=== PATIENT | female | born 1945 | race Caucasian/White ===

== ENCOUNTER 2024-08-21 16:03 | Observation (INO) | payer OTHER, SELFPAY ==
[2024-08-21] VITALS (7 sets, daily range): BP systolic 129–154; BP diastolic 54–80; BMI 25.5
--- NOTE | 2024-08-21 11:22 | ED.GENMED ---
History of Present Illness
General
Chief Complaint: Gait Dysfunction
Source: patient
Exam Limitations: none
Time Seen by Provider: 08/21/24 11:10
History of Present Illness
History of Present Illness:
Patient presenting with increased difficulties transitioning moving from bed or chair to wheelchair. History of MS. Progressive symptoms over months. Fell last night. History of frequent falls. Unable to handle at home at this point. No other
symptoms denying fever cough abdominal pain. Did have nausea and vomiting last evening. This has resolved.
Past History
Past History
ED Past Medical History: Hypercholesterolemia, NIDDM and Other (Multiple sclerosis, mild dementia, osteoporosis)
Social History
Tobacco: Non-smoker
Review of Systems
Review of Systems
All Other Systems: Not applicable
Constitutional: Denies fever or chills
Respiratory: Reports no symptoms
Cardiac: Reports no symptoms
ABD/GI: Denies abdominal pain or diarrhea
Phy Exam
Physical Exam
Physical Exam:
GENERAL: Alert and oriented in no apparent distress
EYE: Patch over her right eye
NECK: Supple, no significant adenopathy.
ENT: Pharynx without erythema
CARDIAC: Regular rate and rhythm without any obvious murmurs.
LUNGS: Clear breath sounds,normal
ABDOMEN: Soft, without focal tenderness or distention
NEUROLOGICAL: Alert and oriented , significant lower extremity weakness greater on the right. Upper extremity weakness greater on the right. This apparently is old.
SKIN: Warm and dry, no rash or lesion, no discoloration, skin intact.
MUSCULOSKELETAL: No edema,no deformity.Good color
PSYCH: Normal and appropriate interaction.
Sepsis
Sepsis Screening
Sepsis Assessment: Sepsis Ruled Out
Sepsis Screen
Sepsis Screen: Sepsis Ruled Out
Date: 08/22/24
Time: 08:53
Course
Orders/Labs/Results
Orders:
Orders
08/21/24 11:21
CT Head W/o Iv Contrast Urgent
Comment:
Reason For Exam: Increased weakness. History of MS
Cardiac Monitoring- Treatment ONCE
EKG- Treatment ONCE
IV Insert/Care/Rem.- Treatment PRN
Pulse Ox/cont/shift [RESP] Stat
Quantity: 1
08/21/24 11:34
Basic Metabolic Panel Urgent
COVID-19 Antigen Urgent
Source: Nasal Swab
Complete Blood Count/With Diff Urgent
Manual Differential Urgent
Urinalysis Reflex To Culture Urgent
Date Specimen was Collected: 08/21/24
Time Specimen was Collected: 11:25
Urine Microscopic Reflex Cult Urgent
Influenza A+B Rapid Molecular Urgent
MARIBETH Source: Nasal Swab
Specimen Description:
08/21/24 Dinner
BRAT
At Your Request: Limited Participation
08/21/24 15:27
Admit/Transfer Patient As Directed
Co-Sign Provider:
Level of Care: Observation services
Assign to:: Medical/Surgical
Physician / Group: shamika
Diagnosis: gastroenteritis
08/21/24 15:28
Code Status As Directed
Resuscitation Status: Do not resuscitate
Reached after discussion with pt or family/Healthcare POA: Yes
DNR Bracelet Application ONCE
PRN Pain Medication Management As Directed
May give lesser potent ordered pain med per pt: Yes
preference::
Protocol:: Medication orders for pain may be administered in a
manner that supports deferring to patient preference
when the pt is:
- Requesting an ordered lesser potent pain medication.
Least to most potent pain medications are defined
as: acetaminophen < NSAID < tramadol < opioids
(morphine, oxycodone, hydromorphone).
- Requesting a lesser dose of the same medication IF
ORDERED.
- Requesting a less intrusive route of administration
if both routes are prescribed by the provider (PO <
IV).
08/21/24 19:30
Dextrose 50%-Water [Dextrose 50% Syringe] 12.5 grams IV [id number] PRN
Glucagon [GlucaGen] 1 mg IM PRN PRN
Insulin Aspart Corrective Low [Novolog Flexpen-Low Resistance] See Protocol SC AC
Ondansetron Injectable [Zofran] 4 mg IV Q6HPRN PRN
Polyethylene Glycol Powder [Miralax] 17 grams PO DAILYPRN PRN
08/21/24 19:30
Activity As Directed
Activity Level: As Tolerated
Bedside Glucose Monitoring As Directed
Frequency: AC&HS
Additional Instructions:: Change to q6h if pt on TPN, tube feeding or not eating
Vital Signs As Directed
Frequency: Per unit guidelines
Ot Eval And Treat Routine
Pt Eval And Treat Routine
Activity Level: As Tolerated
DX Deep Vein Thrombosis Video Routine
08/21/24 20:00
Heparin 5,000 units SC Q12
08/22/24 04:32
Complete Blood Count/With Diff IN AM
Comprehensive Metabolic Panel IN AM
Glycohemoglobin (HgbA1c) IN AM
08/22/24 08:00
Insulin Glargine Lantus [Lantus] 22 units Subcutaneous Insulin Syringe [Syringe-Insulin] 0 unit SC DAILY
Abnormal Lab Results
08/21/24
11:34
MCH 31.6 H pg
(27.0-31.0)
MPV 10.9 H fL
(7.4-10.4)
Band Neutrophils 30 H %
(0-3)
Lymphocytes (Manual) 0 L %
(20-51)
Chloride 108 H mmol/L
(98-107)
BUN 36 H mg/dl
(7-17)
Glucose 369 H mg/dl
(70-99)
Calcium 8.3 L mg/dl
(8.4-10.2)
Urine Ketones 3+ A
(Negative)
Urine Bacteria (Reflex) Few A
(Negative)
Urine Glucose 4+ A
(Negative)
Urine Albumin (Reflex) 1+ A
(Neg - Trace)
08/21/24 11:34
08/21/24 11:34
Vital Signs
Initial and Last Documented VS:
Initial Vital Signs
BP
150/66
08/21/24 11:04
Last Documented Vital Signs
Temp Pulse Resp BP Pulse Ox
98.2 F 83 16 129/70 94
08/22/24 07:00 08/22/24 07:00 08/22/24 07:00 08/22/24 07:00 08/22/24 07:00
MDM/Problems Addressed
Differential Diagnosis Includes:
Patient describing progressive weakness likely secondary to her MS. Other etiologies to be entertained including electrolyte abnormality infection central neurologic issue. She is asymmetrical on her weakness but this apparently is known. Workup
in progress. This will likely be an ADL issue.
*Radiology
Radiology exam reviewed: radiology read reviewed (No acute findings on CT)
*Pulse Oximetry
Patient hypoxic: no
*Critical Care Note
Total Time (30-74mins, 75-104mins- exclusive of procedures): Not Applicable
Data Reviewed
Review of Other/Old Records Reveals: Labs, Records, Testing and Discharge Summary
Update Note
Update Note:
Patient with progressive general weakness. May be related to her MS. May be other underlying infectious issue with the bandemia although clinically I cannot find another infectious issue. Significant and progressive ADL issues. Unable to handle
at home. Will admit for further workup and care
ED Attending Note
-
Portions of this chart may have been created with voice recognition software.� Occasional wrong word or��sound alike� substitutions may have occurred due to the inherent limitations of voice recognition software.
Discharge Plan
Departure
Patient Disposition: Admit
Date of Disposition: 08/21/24
Time of Disposition: 15:05
Presentation/result/management discussed w/ accepting MD/DO: Hospitalist
Discharge Problem:
Ambulatory dysfunction, Multiple sclerosis, Bandemia
Interventions
Interventions:
*Risk Screen - Suicide Last Done: 08/21/24 12:00
*General Assessment Last Done: 08/21/24 12:00
*Neglect/Abuse Screening Last Done: 08/21/24 12:00
ED- Fall Risk Assessment Last Done: 08/21/24 12:00
*ED COVID-19 Vaccine History Last Done: 08/21/24 19:44
*Nursing Disposition Last Done: 08/21/24 19:44
ED- Neurological Assessment Last Done: 08/21/24 12:00
ED Swallowing Screen Last Done: 08/21/24 12:00
Discharge Date and Time
Discharge Date/Time: 08/21/24 19:45
[2024-08-21 11:55] LABS: Hematocrit 45.5 % (37.0-47.0); Hemoglobin 15.4 g/dL (12.0-16.0); Mean Corp Hgb Conc. 33.8 g/dL (33.0-37.0); Mean Corpuscular Hgb 31.6 pg (27.0-31.0); Mean Corpuscular Volume 93.2 fL (81.0-99.0); Mean Platelet Volume 10.9 fL (7.4-10.4); Platelet Count 240 10^3/uL (130-400); Red Blood Cell Count 4.88 10^6/uL (4.20-5.40); Red Cell Dist. Width 12.4 % (11.5-14.5)
[2024-08-21 12:00] LABS: Blood Urea Nitrogen 36 mg/dl (7-17); Calcium 8.3 mg/dl (8.4-10.2); Carbon Dioxide 23 mmol/L (22-30); Chloride 108 mmol/L (98-107); Estimated Creatinine Clearance 63 ml/min; Glucose 369 mg/dl (70-99); Potassium 4.1 mmol/L (3.5-5.1); Sodium 139 mmol/L (135-145); eGFR > 60.00
[2024-08-21 12:14] LABS: Urine Albumin 1+ (Neg - Trace); Urine Bilirubin Negative (Negative); Urine Character Clear (Clear); Urine Color Yellow; Urine Glucose 4+ (Negative); Urine Ketone 3+ (Negative); Urine Leukocyte Negative (Negative); Urine Nitrite Negative (Negative); Urine Occult Blood Negative (Negative); Urine Urobilinogen Negative (Neg - 1+)
[2024-08-21 12:24] LABS: COVID-19 Antigen Negative (Negative)
[2024-08-21 12:38] LABS: Absolute Neutrophils -Man Diff 5.8 10^3/uL (1.4-6.5); Band Neutrophils 30 % (0-3); Lymphocytes 0 % (20-51); Metamyelocytes 1 % (-); Monocytes 2 % (2-9); Segmented Neutrophils 67 % (42-75)
[2024-08-21 12:39] LABS: Normal RBC Morphology Yes; Platelets Checked Yes; Total Cells Counted 100
[2024-08-21 13:08] LABS: Urine Bacteria Few (Negative); Urine Red Blood Cell 0-2 /HPF (0-2)
--- NOTE | 2024-08-21 15:31 | HPS.HSE ---
Family Physician
-
Family Physician: Dina Dobbins
Chief Complaint
-
weakness, falls
History of Present Illness
79-year-old female past medical history of multiple sclerosis, frequent falls, osteoporosis, type 2 diabetes, orthostatic hypotension, hyperlipidemia, seizures, presenting with falls over the past few days. She has had progressive weakness over the
past several months due to worsening multiple sclerosis.
Yesterday she developed vomiting and diarrhea. Nausea and vomiting had resolved. Her had a gastroenteritis the preceding days and has recovered. She had a diarrheal episode this morning. She denies any fevers or chills. Denies abdominal
pain. No upper respiratory symptoms.
She has been wearing an eye patch over her right eye due to double vision due to multiple sclerosis.
She does not smoke or drink alcohol.
Medical History
Past Medical History
Past Medical History: Reports Other (multiple sclerosis, frequent falls, osteoporosis, type 2 diabetes, orthostatic hypotension, hyperlipidemia, seizures)
Past Surgical History: Reports None
Social History
Tobacco: Non-smoker
Alcohol: None
Drug: None
Family History
Family History: Not pertinent
Allergies / Home Medications
Allergies reflects when Allergies were last updated in [employer].
Home Medications with original date entered in [employer]
Allergy/Medication List:
Allergies
Allergy/AdvReac Type Severity Reaction Status Date / Time
No Known Allergies Allergy Unverified 08/21/24 11:18
Home Medications
aspirin 81 mg chewable tablet 81 mg PO DAILY 03/04/21
cholecalciferol (vitamin D3) 50 mcg (2,000 unit) tablet 2,000 units PO DAILY 03/04/21
glimepiride 4 mg tablet 4 mg PO DAILY 03/04/21
hdzfaowm-vay-wzrcl acid 0.4 mg-lycopene 300 mcg-lutein 250 mcg tablet (Centrum Silver) 1 ea PO DAILY 03/04/21
oxybutynin chloride 5 mg tablet 5 mg PO DAILY 03/04/21
pravastatin 40 mg tablet 40 mg PO HS 03/04/21
siponimod 2 mg tablet (Mayzent) 2 mg PO DAILY 03/04/21
alendronate 70 mg tablet 70 mg PO MO 08/13/22
calcium 600 mg (as carbonate)-vit D3 20 mcg (800 unit) chewable tablet (Caltrate plus D) 1 tab PO DAILY 08/13/22
levetiracetam 1,000 mg tablet 1,000 mg PO BID 08/13/22
melatonin 10 mg tablet 10 mg PO HS PRN sleep 08/13/22
metformin 1,000 mg tablet 1,000 mg PO BID 08/13/22
midodrine 2.5 mg tablet 2.5 mg PO TID 08/13/22
repaglinide 0.5 mg tablet 0.5 mg PO AC 08/13/22
trazodone 50 mg tablet 12.5 mg PO HS 08/13/22
benzonatate 100 mg capsule 200 mg (2 x 100 mg) PO TIDPRN PRN cough #0 caps 08/14/22
doxycycline hyclate 100 mg capsule 100 mg PO Q12 #10 caps 08/14/22
guaifenesin 600 mg tablet, extended release 12 hr (Mucinex) 600 mg PO Q12H #14 tabs 08/14/22
Review of Systems
-
Constitutional: Reports No Symptoms
EENT: Reports No Symptoms
Respiratory: Reports No Symptoms
Cardiac: Reports No Symptoms
Abdomen/GI: Reports See HPI
: Reports No Symptoms
Musculoskeletal: Reports No Symptoms
Skin: Reports No Symptoms
Neurological: Reports No Symptoms
Endocrine: Reports No Symptoms
Hematologic/Lymphatic: Reports No Symptoms
Psych: Reports No Symptoms
Physical Exam
Vital Signs
Vital Signs
Temp Pulse Resp BP Pulse Ox
98.2 F 99 26 150/66 93
08/21/24 11:07 08/21/24 11:30 08/21/24 11:30 08/21/24 11:07 08/21/24 11:30
Physical Exam
General: Well Developed, Well Nourished and No Apparent Distress
HEENT: NormoCephalic, Moist mucous membranes and Atraumatic
Respiratory: Clear
Cardiac: S1/S2 and Regular Rhythm; No Murmur or Rub
GI: Soft, Non Tender, Non Distended and Normal Bowel Sounds; No Organomegaly
Rectal: Deferred by Provider
Musculoskeletal: No Clubbing, No Cyanosis and No Edema
Skin: No Rash
Neuro: Nonfocal/grossly intact
Laboratory Results
-
08/21/24 11:34
08/21/24 11:34
Data Reviewed
-
Lab Data: Labs Reviewed by me
Old Records: Reviewed
Impression/Plan
-
IMPRESSION:
PLAN:
# Weakness/ambulatory dysfunction/falls secondary to viral gastroenteritis
# Bandemia
-CT head pending
-Check stool studies, norovirus if further diarrhea
-Urinalysis negative
-Brat diet
-PT/OT
# Hyperglycemia secondary to infection
# Type 2 diabetes
-Blood sugar 369
-Continue Lantus 22 units in the morning which she took this morning
-Insulin sliding scale
Progressive multiple sclerosis with double vision
-Wearing right eye patch
-Has been progressing
-On infusions
-Outpatient follow-up with her neurologist
History of frequent falls
History of orthostatic hypotension
-Continue midodrine
Osteoporosis
-Continue alendronate
Hyperlipidemia
-Continue statin
History of seizures
-Continue Keppra
DNR/DNI
DVT prophylaxis�heparin
Diabetic diet
[2024-08-21 20:13] LABS: Glucose - Point of Care 298 mg/dl (70-99)
[2024-08-21] MEDS: HEPARIN 5000 UNITS SC (20:13)
[2024-08-21] MEDS: NOVOLOG FLEXPEN-LOW RESISTANCE 3 UNITS SC (21:02)
[2024-08-21] MEDS: ProAmatine 2.5 MG PO (21:58)
[2024-08-21] MEDS: DESYREL 12.5 MG PO (21:58)
[2024-08-21] MEDS: VISBIOME 1 CAP PO (22:05)
[2024-08-21] MEDS: KEPPRA 1000 MG PO (22:30)
[2024-08-22 05:40] LABS: Hemoglobin 14.4 g/dL (12.0-16.0); Mean Corp Hgb Conc. 34.3 g/dL (33.0-37.0); Mean Corpuscular Hgb 31.7 pg (27.0-31.0); Mean Corpuscular Volume 92.5 fL (81.0-99.0); Platelet Count 237 10^3/uL (130-400); Red Blood Cell Count 4.54 10^6/uL (4.20-5.40); Red Cell Dist. Width 12.6 % (11.5-14.5); White Blood Cell Count 5.4 10^3/uL (4.8-10.8)
[2024-08-22 05:45] LABS: ALT (SGPT) 38 U/L (0-35); AST (SGOT) 32 U/L (14-36); Albumin 3.5 g/dl (3.5-5.0); Alkaline Phosphatase 50 U/L (38-126); Blood Urea Nitrogen 35 mg/dl (7-17); Calcium 8.3 mg/dl (8.4-10.2); Carbon Dioxide 27 mmol/L (22-30); Chloride 105 mmol/L (98-107); Estimated Creatinine Clearance 55 ml/min; Glucose 177 mg/dl (70-99); Potassium 4.1 mmol/L (3.5-5.1); Sodium 141 mmol/L (135-145); Total Bilirubin 0.6 mg/dl (0.2-1.3); Total Protein 5.8 g/dl (6.3-8.2); eGFR > 60.00
[2024-08-22 06:00] VITALS: BMI 26.0
[2024-08-22 06:51] LABS: Absolute Neutrophils -Man Diff 4.9 10^3/uL (1.4-6.5); Atypical Lymphocytes 1 %; Band Neutrophils 28 % (0-3); Lymphocytes 2 % (20-51); Monocytes 5 % (2-9); Segmented Neutrophils 64 % (42-75)
[2024-08-22 06:52] LABS: Normal RBC Morphology Yes; Platelets Checked Yes; Total Cells Counted 100
[2024-08-22 07:00] VITALS: BP 129/70
[2024-08-22 08:53] LABS: Glucose - Point of Care 258 mg/dl (70-99)
[2024-08-22 09:09] LABS: Glycohemoglobin (HgbA1c) 8.3 % (4.0-5.6)
[2024-08-22 09:13] VITALS: BP 136/75; PULSE 89; O2SAT 98
[2024-08-22 09:14] VITALS: BP 136/75; PULSE 87; O2SAT 98
[2024-08-22] MEDS: NOVOLOG FLEXPEN-LOW RESISTANCE 3 UNITS SC (09:26)
[2024-08-22] MEDS: LANTUS 0.22 UNITS SC (09:28)
[2024-08-22] MEDS: HEPARIN 5000 UNITS SC ×2 (09:29→20:33)
[2024-08-22] MEDS: DITROPAN 5 MG PO (09:30)
[2024-08-22] MEDS: OSCAL 500 + D 500 MG PO (09:30)
[2024-08-22] MEDS: ProAmatine 2.5 MG PO ×3 (09:30→16:10)
[2024-08-22] MEDS: KEPPRA 1000 MG PO ×2 (09:30→20:33)
[2024-08-22] MEDS: VISBIOME 1 CAP PO ×3 (09:30→22:15)
[2024-08-22] MEDS: LOW STRENGTH ASPIRIN 81 MG PO (09:30)
--- NOTE | 2024-08-22 10:20 | W.PN.HOSP.TC ---
Today's Communication/Plan
-
see plan
Assessment / Plan
Assessment / Plan
Ms. Jumana Bocanegra is a 79 yo woman with hx of multiple sclerosis (with progressive weakness over past several months), frequent falls, osteoporosis, type 2 diabetes, orthostatic hypotension, hyperlipidemia, seizures, presenting with falls over
the past few days in setting of vomiting and diarrhea.
HEAD CT
IMPRESSION:
1. Severe demyelinating disease (MULTIPLE SCLEROSIS) throughout the periventricular and subcortical white matter of both cerebral hemispheres.
2. Moderate diffuse cerebral and cerebellar volume loss.
Weakness/ambulatory dysfunction/falls secondary to viral gastroenteritis
Bandemia - persists today (30 --> 28) but patient is clinically improved
-change to Diabetic diet
-PT/OT
- monitor CBC with Diff
# Hyperglycemia secondary to infection
# Type 2 diabetes
-Continue Lantus 22 units in the morning which she took this morning
-Insulin sliding scale
-diabetic diet
-resume Metformin
Progressive multiple sclerosis with double vision
-Wearing right eye patch
-Has been progressing. Per , she was able to transfer from wheelchair to bed but over past several days has been unable to do so (in setting of GI illness).
-On infusions
-LICENSED [employer] [facility] - will bring in today
-Outpatient follow-up with her neurologist - per , she has an appointment for Friday
-PT/OT
History of frequent falls
History of orthostatic hypotension
-Continue midodrine
Osteoporosis
-Continue alendronate
Hyperlipidemia
-Continue statin
History of seizures
-Continue Keppra
DNR/DNI
DVT prophylaxis�heparin
Diabetic diet
Anticipated Discharge: 24 - 48 hours
Subjective/Interval History
-
Date of Service: August 22, 2024
GI symptoms now resolved, no further diarrhea or vomiting
progressive right sided weakness
Objective Data
-
Labs:
Laboratory Results
08/22/24
04:32
WBC 5.4
Hgb 14.4
Hct 42.0
Plt Count 237
Sodium 141
Potassium 4.1
Chloride 105
Carbon Dioxide 27
BUN 35 H
Creatinine 0.8
Glucose 177 H
Calcium 8.3 L
Total Bilirubin 0.6
AST 32
ALT 38 H
Alkaline Phosphatase 50
Vital Signs:
Vital Signs
Temp Pulse Resp BP Pulse Ox
98.2 F 83 16 129/70 94
08/22/24 07:00 08/22/24 09:30 08/22/24 07:00 08/22/24 09:30 08/22/24 07:00
Review of Systems
-
History Source: Patient
All other systems: Reviewed and negative
Physical Exam
-
General: No Apparent Distress
HEENT: PERRLA
Respiratory: Clear to Auscultation; Negative Wheezes
Cardiac: Regular Rhythm and S1/S2
GI: Soft and Nontender
Musculoskeletal: No Edema
Neuro: AO x 3 and Other (right-sided weakness)
Psych: Calm
Data Reviewed
-
Diagnostic Radiology: Report Reviewed by me
Labs: Labs Reviewed by me
--- NOTE | 2024-08-22 12:12 | CM ---
CM following re: discharge planning.
Reviewed pt's chart, met with pt.
Pt is a 79 year old female admitted with OBS status and primary dx of Weakness/ambulatory dysfunction/falls secondary to viral gastroenteritis. OBS form reviewed, placed on chart, pt has a copy.
Pt reports she lives with in an independent apartment at [facility], has no children. Pt reports she ambulates with a walker, has a wheelchair, shower chair, known to [facility] and was at [facility] in the past. pt made a
strong request to go o [facility] for a short term rehab.
A referral to [facility] made. Awaiting for determination.
D/C plan: [facility]
CM will follow to assist pt with discharge to [facility].
[2024-08-22 12:34] LABS: Glucose - Point of Care 204 mg/dl (70-99)
[2024-08-22] MEDS: NOVOLOG FLEXPEN-LOW RESISTANCE 2 UNITS SC (13:05)
[2024-08-22 15:00] VITALS: BP 116/58
[2024-08-22] MEDS: NON-FORMULARY ITEM 2 MG PO (16:00)
[2024-08-22] MEDS: GLUCOPHAGE 1000 MG PO (16:14)
[2024-08-22 17:21] LABS: Glucose - Point of Care 198 mg/dl (70-99)
[2024-08-22] MEDS: PRAVACHOL 20 MG PO (18:06)
[2024-08-22] MEDS: NOVOLOG FLEXPEN-LOW RESISTANCE 1 UNITS SC (18:07)
[2024-08-22 21:34] LABS: Glucose - Point of Care 187 mg/dl (70-99)
[2024-08-22] MEDS: DESYREL 12.5 MG PO (22:14)
[2024-08-22 23:57] VITALS: BP 124/63
[2024-08-23 06:00] VITALS: BMI 25.7
[2024-08-23 06:43] LABS: % Basophils 0.2 % (0-2); % Eosinophils 4.1 % (0-6); % Immature Granulocytes 0.2 % (0-0.5); % Lymphocytes 3.8 % (20.5-51.1); % Monocytes 15.2 % (1.7-9.3); % Neutrophils 76.5 % (42.2-75.2); Absolute Eosinophils 0.2 10^3/uL (0-0.7); Absolute Lymphocytes 0.2 10^3/uL (1.2-3.4); Absolute Monocytes 0.8 10^3/uL (0.1-0.6); Absolute Neutrophils 4.1 10^3/uL (1.4-6.5); Hematocrit 41.1 % (37.0-47.0); Hemoglobin 14.1 g/dL (12.0-16.0); Mean Corp Hgb Conc. 34.3 g/dL (33.0-37.0); Mean Corpuscular Hgb 31.7 pg (27.0-31.0); Mean Corpuscular Volume 92.4 fL (81.0-99.0); Nucleated Red Blood Cells % 0 %; Platelet Count 211 10^3/uL (130-400); Red Blood Cell Count 4.45 10^6/uL (4.20-5.40); Red Cell Dist. Width 12.3 % (11.5-14.5); White Blood Cell Count 5.3 10^3/uL (4.8-10.8)
[2024-08-23 07:05] LABS: Blood Urea Nitrogen 27 mg/dl (7-17); Calcium 8.6 mg/dl (8.4-10.2); Carbon Dioxide 29 mmol/L (22-30); Chloride 103 mmol/L (98-107); Estimated Creatinine Clearance 63 ml/min; Glucose 147 mg/dl (70-99); Sodium 138 mmol/L (135-145); eGFR > 60.00
[2024-08-23 07:34] LABS: Glucose - Point of Care 157 mg/dl (70-99)
[2024-08-23 07:57] LABS: Magnesium 2.1 mg/dl (1.6-2.3)
[2024-08-23 08:23] VITALS: BP 113/78
[2024-08-23] MEDS: HEPARIN 5000 UNITS SC ×2 (09:01→20:36)
[2024-08-23] MEDS: LANTUS 0.22 UNITS SC (09:01)
[2024-08-23] MEDS: OSCAL 500 + D 500 MG PO (09:02)
[2024-08-23] MEDS: DITROPAN 5 MG PO (09:02)
[2024-08-23] MEDS: LOW STRENGTH ASPIRIN 81 MG PO (09:02)
[2024-08-23] MEDS: ProAmatine 2.5 MG PO ×3 (09:04→16:08)
[2024-08-23] MEDS: GLUCOPHAGE 1000 MG PO ×2 (09:04→17:50)
[2024-08-23] MEDS: NON-FORMULARY ITEM 2 MG PO (09:05)
[2024-08-23] MEDS: KEPPRA 1000 MG PO ×2 (09:05→20:37)
[2024-08-23] MEDS: VISBIOME 1 CAP PO ×3 (09:05→23:10)
[2024-08-23] MEDS: NOVOLOG FLEXPEN-LOW RESISTANCE 1 UNITS SC ×2 (09:06→12:59)
[2024-08-23] MEDS: FOSAMAX 70 MG PO (09:55)
[2024-08-23 11:26] LABS: Glucose - Point of Care 180 mg/dl (70-99)
--- NOTE | 2024-08-23 12:09 | W.PN.HOSP.TC ---
Today's Communication/Plan
-
Monitor vital signs see plan
PT/OT recommend SNF
Discharge planning
Continue with Lantus
Continue with MS medications
Assessment / Plan
Assessment / Plan
Ms. Jumana Bocanegra is a 79 yo woman with hx of multiple sclerosis (with progressive weakness over past several months), frequent falls, osteoporosis, type 2 diabetes, orthostatic hypotension, hyperlipidemia, seizures, presenting with falls over
the past few days in setting of vomiting and diarrhea.
HEAD CT
IMPRESSION:
1. Severe demyelinating disease (MULTIPLE SCLEROSIS) throughout the periventricular and subcortical white matter of both cerebral hemispheres.
2. Moderate diffuse cerebral and cerebellar volume loss.
Weakness/ambulatory dysfunction/falls secondary to viral gastroenteritis
Improving
-PT/OT
- monitor CBC with Diff
# Hyperglycemia secondary to infection
# Type 2 diabetes
-Continue Lantus 22 units in the morning
-Insulin sliding scale
-diabetic diet
-resume Metformin
Progressive multiple sclerosis with double vision
-Wearing right eye patch
-Has been progressing. Per , she was able to transfer from wheelchair to bed but over past several days has been unable to do so (in setting of GI illness).
-On infusions
-PATIENT SAFETY TECH [facility] - will bring
-Outpatient follow-up with her neurologist - per , she has an appointment for Friday
-PT/OT rec SNF
History of frequent falls
History of orthostatic hypotension
-Continue midodrine
Osteoporosis
-Continue alendronate
Hyperlipidemia
-Continue statin
History of seizures
-Continue Keppra
DNR/DNI
DVT prophylaxis�heparin
General: No Apparent Distress
HEENT: PERRLA
Respiratory: Clear to Auscultation; Negative Wheezes
Cardiac: Regular Rhythm and S1/S2
GI: Soft and Nontender
Musculoskeletal: No Edema
Neuro: AO x 3 and Other (right-sided weakness)
Psych: Calm
Anticipated Discharge: Today
Subjective/Interval History
-
Date of Service: August 23, 2024
denies pain
Objective Data
-
Labs:
Laboratory Results
08/23/24
06:00
WBC 5.3
Hgb 14.1
Hct 41.1
Plt Count 211
Sodium 138
Potassium 4.0
Chloride 103
Carbon Dioxide 29
BUN 27 H
Creatinine 0.7
Glucose 147 H
Calcium 8.6
Vital Signs:
Vital Signs
Temp Pulse Resp BP Pulse Ox
97.9 F 82 15 113/78 99
08/23/24 08:23 08/23/24 09:04 08/23/24 08:23 08/23/24 09:04 08/23/24 08:23
I&O
08/22/24 08/23/24 08/24/24
06:59 06:59 06:59
Intake Total 1620 / 1620
Balance 162 / 1620
[2024-08-23 14:53] VITALS: BP 130/72
[2024-08-23 16:26] LABS: Glucose - Point of Care 94 mg/dl (70-99)
--- NOTE | 2024-08-23 17:23 | CM ---
Met with patient at her request as well as spouse's. Patient stated that she is aware of indication for SNF, however feels that she would like to return back to her apartment with VN services. Patient's spouse stated that he can support her at home
as patient is mostly w/c. Will discuss with attending in am. Patient and his were advised of the medical advisement against that.
Plan: Case management will continue to follow and assist with discharge planning. Home with VN through .
[2024-08-23] MEDS: PRAVACHOL 20 MG PO (17:50)
[2024-08-23] MEDS: NOVOLOG FLEXPEN-LOW RESISTANCE SC (17:50)
[2024-08-23 19:07] LABS: Hepatitis C Antibody Negative (Negative)
[2024-08-23 22:21] LABS: Glucose - Point of Care 127 mg/dl (70-99)
[2024-08-23 23:06] VITALS: BP 150/72
[2024-08-23] MEDS: DESYREL 12.5 MG PO (23:10)
[2024-08-24 07:15] LABS: Glucose - Point of Care 99 mg/dl (70-99)
[2024-08-24 07:32] LABS: % Basophils 0.2 % (0-2); % Eosinophils 0.9 % (0-6); % Immature Granulocytes 0.4 % (0-0.5); % Lymphocytes 2.9 % (20.5-51.1); % Neutrophils 84.6 % (42.2-75.2); Absolute Eosinophils 0.1 10^3/uL (0-0.7); Absolute Lymphocytes 0.3 10^3/uL (1.2-3.4); Absolute Monocytes 1.1 10^3/uL (0.1-0.6); Absolute Neutrophils 8.3 10^3/uL (1.4-6.5); Hematocrit 45.8 % (37.0-47.0); Hemoglobin 15.1 g/dL (12.0-16.0); Mean Corpuscular Hgb 31.3 pg (27.0-31.0); Mean Corpuscular Volume 94.8 fL (81.0-99.0); Mean Platelet Volume 11.3 fL (7.4-10.4); Nucleated Red Blood Cells % 0 %; Platelet Count 267 10^3/uL (130-400); Red Blood Cell Count 4.83 10^6/uL (4.20-5.40); Red Cell Dist. Width 12.2 % (11.5-14.5); White Blood Cell Count 9.9 10^3/uL (4.8-10.8)
[2024-08-24 07:48] VITALS: BP 134/69
[2024-08-24 07:48] LABS: Blood Urea Nitrogen 25 mg/dl (7-17); Calcium 9.2 mg/dl (8.4-10.2); Carbon Dioxide 23 mmol/L (22-30); Chloride 105 mmol/L (98-107); Estimated Creatinine Clearance 63 ml/min; Glucose 107 mg/dl (70-99); Potassium 4.3 mmol/L (3.5-5.1); Sodium 138 mmol/L (135-145); eGFR > 60.00
[2024-08-24] MEDS: NOVOLOG FLEXPEN-LOW RESISTANCE SC (08:25)
[2024-08-24] MEDS: NON-FORMULARY ITEM 2 MG PO (08:27)
[2024-08-24] MEDS: GLUCOPHAGE 1000 MG PO (08:30)
[2024-08-24] MEDS: LANTUS 0.22 UNITS SC (08:30)
[2024-08-24] MEDS: ProAmatine 2.5 MG PO ×2 (08:30→12:13)
[2024-08-24] MEDS: LOW STRENGTH ASPIRIN 81 MG PO (08:31)
[2024-08-24] MEDS: KEPPRA 1000 MG PO (08:31)
[2024-08-24] MEDS: OSCAL 500 + D 500 MG PO (08:31)
[2024-08-24] MEDS: HEPARIN 5000 UNITS SC (08:31)
[2024-08-24] MEDS: VISBIOME 1 CAP PO (08:31)
[2024-08-24] MEDS: DITROPAN 5 MG PO (08:31)
--- NOTE | 2024-08-24 10:13 | CM ---
Received consult for VN, made referral to VN as chosen by patient and his .
Plan: Case management will continue to follow and assist with discharge planning.
--- NOTE | 2024-08-24 10:15 | VNURNOTE ---
Home Health Liaison met with patient at bedside to discuss [facility] nurse/therapy, visits, schedule and homebound status. Patient is agreeable and understands that visits at home will be 2-3 x per week to assess and teach medical management. Patient is
aware that [facility] will contact them for start of care in 1-2 days after discharge from . Added HINGING MACHINE OPERATOR to referral per patient request. [facility] referral completed in [facility].
--- NOTE | 2024-08-24 10:47 | W.PN.HOSP.TC ---
Today's Communication/Plan
-
Monitor vitals
See plan
Does not want to go to rehab, prefers home with [facility]NA
Discharge today
Assessment / Plan
Assessment / Plan
Ms. Jumana Bocanegra is a 79 yo woman with hx of multiple sclerosis (with progressive weakness over past several months), frequent falls, osteoporosis, type 2 diabetes, orthostatic hypotension, hyperlipidemia, seizures, presenting with falls over
the past few days in setting of vomiting and diarrhea.
HEAD CT
IMPRESSION:
1. Severe demyelinating disease (MULTIPLE SCLEROSIS) throughout the periventricular and subcortical white matter of both cerebral hemispheres.
2. Moderate diffuse cerebral and cerebellar volume loss.
Weakness/ambulatory dysfunction/falls secondary to viral gastroenteritis
Improving
-PT/OT
# Hyperglycemia secondary to infection
# Type 2 diabetes
-Continue Lantus 22 units in the morning
-Insulin sliding scale
-diabetic diet
-resume Metformin
Progressive multiple sclerosis with double vision
-Wearing right eye patch
-Has been progressing. Per , she was able to transfer from wheelchair to bed but over past several days has been unable to do so (in setting of GI illness).
-On infusions
-[employer] [facility] - will bring
-Outpatient follow-up with her neurologist - per , she has an appointment for Friday
-PT/OT rec SNF; discussed with patient and spouse. They prefer to go home with VN.
History of frequent falls
History of orthostatic hypotension
-Continue midodrine
Osteoporosis
-Continue alendronate
Hyperlipidemia
-Continue statin
History of seizures
-Continue Keppra
DNR/DNI
DVT prophylaxis�heparin
General: No Apparent Distress
HEENT: PERRLA
Respiratory: Clear to Auscultation; Negative Wheezes
Cardiac: Regular Rhythm and S1/S2
GI: Soft and Nontender
Musculoskeletal: No Edema
Neuro: AO x 3 and Other (right-sided weakness)
Psych: Calm
Anticipated Discharge: Today
Subjective/Interval History
-
Date of Service: August 24, 2024
denies pain
Objective Data
-
Labs:
Laboratory Results
08/24/24
06:39
WBC 9.9
Hgb 15.1
Hct 45.8
Plt Count 267 D
Sodium 138
Potassium 4.3
Chloride 105
Carbon Dioxide 23
BUN 25 H
Creatinine 0.7
Glucose 107 H
Calcium 9.2
Vital Signs:
Vital Signs
Temp Pulse Resp BP Pulse Ox
97 F 82 16 134/69 98
08/24/24 07:48 08/24/24 07:48 08/24/24 07:48 08/24/24 07:48 08/24/24 07:48
I&O
08/23/24 08/24/24 08/25/24
06:59 06:59 06:59
Intake Total 1620 / 1620 840 / 840
Balance 1620 / 1620 840 / 840
--- NOTE | 2024-08-24 10:52 | W.DCSUMMARY ---
Discharge Summary
Discharge Data
Date of Admission: 08/21/24
Date of Discharge: 08/24/24
-
Pending Results: No
Hospital Course
79-year-old female with past medical history of multiple sclerosis, amatory dysfunction, orthostatic hypotension, osteoporosis, hyperlipidemia, diabetes mellitus, history of seizures came to the hospital with viral gastroenteritis. over time her
symptoms continue to improve with symptomatic treatment. Patient was also eval by physical therapy who recommended SNF. Over time patient felt her symptoms improved and she was back to her baseline physical status. Patient and her spouse decided
to rather go home with VN. Once patient gastroenteritis was improving, she was then discharged home with instructions to follow-up with all her physicians outpatient. On discharge patient instructed to follow-up closely with her PCP and neurology
outpatient.
Discharge Plan
-
Patient Disposition: Home with Home Care
Discharge Diagnosis/Procedures: Ambulatory dysfunction
Viral gastroenteritis
History of multiple sclerosis
Diet: As tolerated
Activity: As tolerated
Driving Restrictions: As prior to admission
Bathing Restrictions: None
Activity Restrictions/Additional Instructions:
Follow-up with your neurologist outpatient
Referrals:
Dina Dobbins MD [Family Provider] - in less than 1 week
Prescriptions:
Continued
pravastatin 40 MG tablet
20 mg PO HS
aspirin 81 MG tablet,chewable
81 mg PO DAILY
oxybutynin chloride 5 MG tablet
5 mg PO DAILY
cholecalciferol (vitamin D3) 2,000 UNITS tablet
2,000 units PO DAILY
Mayzent 2 MG tablet
2 mg PO DAILY
trazodone 50 mg tablet
12.5 mg PO HS
alendronate 70 mg tablet
70 mg PO MO
metformin 1,000 mg tablet
1,000 mg PO BID
midodrine 2.5 mg tablet
2.5 mg PO TID
levetiracetam 1,000 mg tablet
1,000 mg PO BID
melatonin 10 mg Tablet
10 mg PO HS PRN (Reason: sleep)
Caltrate 600 plus D 600 mg-20 mcg (800 unit) Tablet,Chewable
1 tab PO DAILY
lactase 9,000 unit Tablet
9,000 unit PO TID
senna
8.6 mg HS
Mayzent 2 mg Tablet
2 mg PO DAILY
Changed
insulin glargine [Lantus Solostar U-100 Insulin] 100 unit/mL (3 mL) insulin pen
22 unit SC DAILY Qty: 0 0RF
Discharge Orders:
Discharge Patient (As Directed); Ordered 08/24/24
Ordered By: Juve Burns
Discharge Date and Time
Discharge Date/Time: 08/24/24 14:50
Print Language: PUERTO RICAN
[2024-08-24 11:45] LABS: Glucose - Point of Care 204 mg/dl (70-99)
[2024-08-24] MEDS: NOVOLOG FLEXPEN-LOW RESISTANCE 2 UNITS SC (12:13)
[2024-08-24 14:11] VITALS: BP 130/78
== END 2024-08-24 14:50 | disposition home health service (06) ==
LOC: 3 WEST ACU 16:03
PROVIDERS: Student in an Organized Health Care Education/Training Program; ADMITTING PHYSICIAN Hospitalist; ATTENDING PHYSICIAN Internal Medicine; EMERGENCY PHYSICIAN Emergency Medicine; FAMILY PHYSICIAN Internal Medicine Geriatric Medicine
DX: G35 Multiple sclerosis (principal); Z11.52 Encounter for screening for COVID-19; E11.65 Type 2 diabetes mellitus with hyperglycemia; M81.0 Age-related osteoporosis without current pathological fracture; R56.9 Unspecified convulsions; A08.4 Viral intestinal infection, unspecified; Z66 Do not resuscitate; Z79.4 Long term (current) use of insulin
CPT/HCPCS: 70450; 80048; 80053; 81003; 81015; 82962; 83036; 83735; 85025; 86803; 87070; 87502; 87811; 94760; 97163; 97167; 97530; 99285; G0378

== ENCOUNTER 2024-12-08 00:57 | Observation (INO) | payer OTHER, SELFPAY ==
[2024-12-07 21:23] VITALS: BP 151/64
[2024-12-07 22:00] VITALS: BP 140/61
[2024-12-07 22:14] LABS: % Basophils 0.4 % (0-2); % Eosinophils 2.5 % (0-6); % Immature Granulocytes 0.3 % (0-0.5); % Lymphocytes 1.6 % (20.5-51.1); % Monocytes 9.1 % (1.7-9.3); % Neutrophils 86.1 % (42.2-75.2); Absolute Eosinophils 0.3 10^3/uL (0-0.7); Absolute Lymphocytes 0.2 10^3/uL (1.2-3.4); Absolute Neutrophils 9.5 10^3/uL (1.4-6.5); Hematocrit 38.6 % (37.0-47.0); Hemoglobin 13.5 g/dL (12.0-16.0); Mean Corpuscular Volume 91.5 fL (81.0-99.0); Mean Platelet Volume 10.7 fL (7.4-10.4); Nucleated Red Blood Cells % 0 %; Platelet Count 258 10^3/uL (130-400); Red Blood Cell Count 4.22 10^6/uL (4.20-5.40); Red Cell Dist. Width 12.1 % (11.5-14.5); White Blood Cell Count 11.1 10^3/uL (4.8-10.8)
[2024-12-07 22:35] LABS: ALT (SGPT) 25 U/L (0-35); AST (SGOT) 22 U/L (14-36); Alkaline Phosphatase 48 U/L (38-126); Blood Urea Nitrogen 26 mg/dl (7-17); Calcium 9.6 mg/dl (8.4-10.2); Carbon Dioxide 31 mmol/L (22-30); Chloride 104 mmol/L (98-107); Glucose 245 mg/dl (70-99); Potassium 4.9 mmol/L (3.5-5.1); Sodium 140 mmol/L (135-145); Total Bilirubin 0.2 mg/dl (0.2-1.3); Total Protein 6.6 g/dl (6.3-8.2); eGFR > 60.00
[2024-12-07 23:00] VITALS: BP 108/57
[2024-12-07 23:08] LABS: Urine Albumin Negative (Neg - Trace); Urine Bilirubin Negative (Negative); Urine Character Clear (Clear); Urine Color Yellow; Urine Glucose 4+ (Negative); Urine Ketone Negative (Negative); Urine Leukocyte 1+ (Negative); Urine Nitrite Positive (Negative); Urine Occult Blood 4+ (Negative); Urine Urobilinogen Negative (Neg - 1+)
[2024-12-07 23:20] LABS: Urine Squamous Cell >30 /LPF (Few)
[2024-12-07 23:22] LABS: Urine Bacteria Moderate (Negative)
[2024-12-08] VITALS: BP 125/59
--- NOTE | 2024-12-08 00:01 | ED.GENMED ---
History of Present Illness
General
Chief Complaint: Fall
Source: patient
Exam Limitations: none
Time Seen by Provider: 12/07/24 21:21
Nursing documentation reviewed up to this point in time: agreed with
History of Present Illness
History of Present Illness:
Patient to ED with complaint of weakness, fatigue. Symptoms started yesterday. States she fell twice today because of her weakness. Denies hitting her head. No LOC. Brought to ED via EMS for eval.
Past History
Past History
ED Past Medical History: Hypercholesterolemia, NIDDM and Other (Multiple sclerosis, mild dementia, osteoporosis)
Social History
Tobacco: Non-smoker
Review of Systems
Review of Systems
Allergies reviewed?: Yes
All Other Systems: ROS reviewed and negative except as documented in HPI and ROS
Constitutional: Reports fatigue
EENT: Reports no symptoms
Respiratory: Reports no symptoms
Cardiac: Reports no symptoms
ABD/GI: Reports no symptoms
: Reports no symptoms
Musculoskeletal: Reports no symptoms
Skin: Reports no symptoms
Neurological: Reports weakness
Endocrine: Reports no symptoms
Hematologic/Lymphatic: Reports no symptoms
Psychiatric: Reports no symptoms
Phy Exam
General Physical Exam
General Presentation: moderate distress
General age: appears stated age
General Skin: warm and dry
General Habitus: normal
General Mental: alert
General Hydration: dry mucous membranes
Cardiovascular Exam
Cardiovascular Exam: regular rate/rhythm
Pulmonary Exam
Pulmonary Exam: lungs clear and no respiratory distress
Gastrointestinal Exam
Gastrointestinal Exam: normal bowel sounds, non tender, soft, no organomegaly and non distended
Neurological Exam
Neurological Exam: alert, CN II-XII intact, no motor deficits, no sensory deficits and speech normal
Musculoskeletal Exam
Musculoskeletal Exam: full ROM and neuro vasc intact
Skin Exam
Skin Exam: normal color, warm/dry and no rash
Psychiatric Exam
Psychiatric Exam: normal mood/affect
Course
Orders/Labs/Results
Orders:
Orders
12/07/24 21:41
CT Head W/o Iv Contrast Urgent
Comment:
Reason For Exam: weakness
12/07/24 22:08
Complete Blood Count/With Diff Urgent
Comprehensive Metabolic Panel Urgent
12/07/24 22:50
Urinalysis Reflex To Culture Urgent
Date Specimen was Collected: 12/07/24
Time Specimen was Collected: 22:47
Urine Microscopic Reflex Cult Urgent
Urine Culture Urgent
MARIBETH Source: U
Specimen Description:
Date Specimen was Collected: 12/07/24
Time Specimen was Collected: 22:47
12/08/24 00:06
0.9% Sodium Chloride 1000 ml [Nss] 1,000 ml IV BOLUS
12/08/24 00:09
Cefepime HCl [Maxipime] 2,000 mg IV NOW STA
Abnormal Lab Results
12/07/24 12/07/24
22:08 22:50
WBC 11.1 H 10^3/uL
(4.8-10.8)
MCH 32.0 H pg
(27.0-31.0)
MPV 10.7 H fL
(7.4-10.4)
Absolute Neuts (auto) 9.5 H 10^3/uL
(1.4-6.5)
Absolute Lymphs (auto) 0.2 L 10^3/uL
(1.2-3.4)
Absolute Monos (auto) 1.0 H 10^3/uL
(0.1-0.6)
Neutrophils % 86.1 H %
(42.2-75.2)
Lymphocytes % 1.6 L %
(20.5-51.1)
Carbon Dioxide 31 H mmol/L
(22-30)
BUN 26 H mg/dl
(7-17)
Glucose 245 H mg/dl
(70-99)
Ur Occult Blood Reflex 4+ A
(Negative)
Urine Nitrite (Reflex) Positive A
(Negative)
Leukocyte Esterase Rfl 1+ A
(Negative)
Urine RBC 11-15 A /HPF
(0-2)
Urine Bacteria (Reflex) Moderate A
(Negative)
Urine Glucose 4+ A
(Negative)
12/07/24 22:08
12/07/24 22:08
Vital Signs
Initial and Last Documented VS:
Initial Vital Signs
Temp Pulse Ox
98.3 F 97
12/07/24 21:17 12/07/24 21:17
Last Documented Vital Signs
Temp Pulse Resp BP Pulse Ox
98.3 F 84 18 125/59 95
12/07/24 21:17 12/07/24 21:23 12/07/24 21:23 12/08/24 00:00 12/08/24 00:00
*Radiology
Radiology exam reviewed: radiology read reviewed
*Pulse Oximetry
Patient hypoxic: no
*Critical Care Note
Total Time (30-74mins, 75-104mins- exclusive of procedures): Not Applicable
ED Attending Note
-
Portions of this chart may have been created with voice recognition software.� Occasional wrong word or��sound alike� substitutions may have occurred due to the inherent limitations of voice recognition software.
Discharge Plan
Departure
Patient Disposition: Admit
Date of Disposition: 12/08/24
Time of Disposition: 00:05
Presentation/result/management discussed w/ accepting MD/DO: Hospitalist
Patient with high blood pressure during this ER visit?: No
Condition: Fair
Covid-19: Not Applicable
Discharge Problem:
Weakness, UTI (urinary tract infection)
Prescriptions:
No Action
pravastatin 40 MG tablet
20 mg PO HS
aspirin 81 MG tablet,chewable
81 mg PO DAILY
oxybutynin chloride 5 MG tablet
5 mg PO DAILY
cholecalciferol (vitamin D3) 2,000 UNITS tablet
2,000 units PO DAILY
Mayzent 2 MG tablet
2 mg PO DAILY
trazodone 50 mg tablet
12.5 mg PO HS
alendronate 70 mg tablet
70 mg PO MO
metformin 1,000 mg tablet
1,000 mg PO BID
midodrine 2.5 mg tablet
2.5 mg PO TID
levetiracetam 1,000 mg tablet
1,000 mg PO BID
melatonin 10 mg Tablet
10 mg PO HS PRN (Reason: sleep)
Caltrate 600 plus D 600 mg-20 mcg (800 unit) Tablet,Chewable
1 tab PO DAILY
lactase 9,000 unit Tablet
9,000 unit PO TID
senna
8.6 mg HS
Mayzent 2 mg Tablet
2 mg PO DAILY
insulin glargine [Lantus Solostar U-100 Insulin] 100 unit/mL (3 mL) insulin pen
22 unit SC DAILY Qty: 0 0RF
Referrals:
Dina Dobbins MD [Family Provider, Internal Medicine]
Interventions
Interventions:
*Risk Screen - Suicide Last Done: 12/07/24 21:17
*General Assessment Last Done: 12/07/24 21:17
*Neglect/Abuse Screening Last Done: 12/07/24 21:17
*ED- Fall Risk Assessment Last Done: 12/07/24 21:17
*ED COVID-19 Vaccine History Last Done: 12/07/24 21:17
ED-Musculoskeletal Assessment Last Done: 12/07/24 21:17
ED- Neurological Assessment Last Done: 12/07/24 21:17
ED-Skin Assessment Last Done: 12/07/24 21:17
Discharge Date and Time
Print Language: [place]
--- NOTE | 2024-12-08 00:14 | HPS.HSE ---
Family Physician
-
Family Physician: Dina Dobbins
Chief Complaint
-
Fall
History of Present Illness
This is a 79-year-old female with a history of multiple sclerosis, orthostatic hypotension, insulin-dependent diabetes, seizures and chronic ambulatory dysfunction presents to the emergency department following 2 falls at home.
Family reported that she was in usual state of health up until this evening. While she was having dinner spouse reported that she was leaning to 1 side (right). He reports that this often occurs when she is having worsening weakness due to some
underlying infection exacerbating her MS. Patient herself was not aware of this.
Apparently earlier in the day when she attempted to transfer from her recliner to a wheelchair she lost her balance and fell without hitting her head. There was no loss of consciousness. She was able to be helped by spouse to the chair and she
went to dinner. When she came back pain she had a large bowel movement without any feelings of lightheadedness dizziness or palpitations or loss of consciousness. However she was being helped off of the commode she became very weak and limp and
collapsed to the floor. At this point spouse decided to get additional help and patient was brought to the emergency department as she continued to remain weak.
Patient herself denies any new symptoms. She denied headache nausea vomiting abdominal pain flank pain fevers chills cough shortness of breath chest pain palpitations lightheadedness dizziness orthopnea or PND. She specifically denies dysuria
frequency urgency.
Spouse reports that the patient does have heavy and wet diapers that she does not change as frequently as usual. Did not reported foul-smelling urine. Patient denies any changes in medications. Her appetite is intact.
In the emergency department she was afebrile, blood pressure was 140/61 with a pulse of 84 and she was satting 97% on room air.
CT of the head was negative. UA was positive although also include squamous cells.
He had a white count of 11, hemoglobin and platelet counts were normal. Electrolytes were all within normal range. BUN/creatinine were normal. Glucose was slightly elevated at 245.
Medical History
Past Medical History
Past Medical History: Reports Other (multiple sclerosis, frequent falls, osteoporosis, type 2 diabetes, orthostatic hypotension, hyperlipidemia, seizures)
Past Surgical History: Reports None
Social History
Tobacco: Non-smoker
Alcohol: None
Drug: None
Family History
Family History: Not pertinent
Allergies / Home Medications
Allergies reflects when Allergies were last updated in [facility].
Home Medications with original date entered in [facility]
Allergy/Medication List:
Allergies
Allergy/AdvReac Type Severity Reaction Status Date / Time
No Known Allergies Allergy Unverified 08/21/24 11:18
Home Medications
aspirin 81 mg chewable tablet 81 mg PO DAILY 03/04/21
cholecalciferol (vitamin D3) 50 mcg (2,000 unit) tablet 2,000 units PO DAILY 03/04/21
glimepiride 4 mg tablet 4 mg PO DAILY 03/04/21
ueshyboq-lep-mtifq acid 0.4 mg-lycopene 300 mcg-lutein 250 mcg tablet (Centrum Silver) 1 ea PO DAILY 03/04/21
oxybutynin chloride 5 mg tablet 5 mg PO DAILY 03/04/21
pravastatin 40 mg tablet 40 mg PO HS 03/04/21
siponimod 2 mg tablet (Mayzent) 2 mg PO DAILY 03/04/21
alendronate 70 mg tablet 70 mg PO MO 08/13/22
calcium 600 mg (as carbonate)-vit D3 20 mcg (800 unit) chewable tablet (Caltrate plus D) 1 tab PO DAILY 08/13/22
levetiracetam 1,000 mg tablet 1,000 mg PO BID 08/13/22
melatonin 10 mg tablet 10 mg PO HS PRN sleep 08/13/22
metformin 1,000 mg tablet 1,000 mg PO BID 08/13/22
midodrine 2.5 mg tablet 2.5 mg PO TID 08/13/22
repaglinide 0.5 mg tablet 0.5 mg PO AC 08/13/22
trazodone 50 mg tablet 12.5 mg PO HS 08/13/22
benzonatate 100 mg capsule 200 mg (2 x 100 mg) PO TIDPRN PRN cough #0 caps 08/14/22
doxycycline hyclate 100 mg capsule 100 mg PO Q12 #10 caps 08/14/22
guaifenesin 600 mg tablet, extended release 12 hr (Mucinex) 600 mg PO Q12H #14 tabs 08/14/22
Review of Systems
-
Constitutional: Reports No Symptoms
EENT: Reports No Symptoms
Respiratory: Reports No Symptoms
Cardiac: Reports No Symptoms
Abdomen/GI: Reports No Symptoms
: Reports No Symptoms
Musculoskeletal: Reports No Symptoms
Skin: Reports No Symptoms
Neurological: Reports Weakness
Endocrine: Reports No Symptoms
Hematologic/Lymphatic: Reports No Symptoms
Psych: Reports No Symptoms
Physical Exam
Vital Signs
Vital Signs
Temp Pulse Resp BP Pulse Ox
98.3 F 84 18 125/59 95
12/07/24 21:17 12/07/24 21:23 12/07/24 21:23 12/08/24 00:00 12/08/24 00:00
Physical Exam
General: Well Developed, Well Nourished and No Apparent Distress
HEENT: NormoCephalic, Moist mucous membranes and Atraumatic
Respiratory: Clear
Cardiac: S1/S2 and Regular Rhythm; No Murmur or Rub
GI: Soft, Non Tender, Non Distended and Normal Bowel Sounds; No Organomegaly
Rectal: Deferred by Provider
Musculoskeletal: No Clubbing, No Cyanosis and No Edema
Skin: No Rash
Neuro: Nonfocal/grossly intact
Laboratory Results
-
12/07/24 22:08
12/07/24 22:08
Laboratory Results
Total Bilirubin 0.2 mg/dl (0.2-1.3) 12/07/24 22:08
AST 22 U/L (14-36) 12/07/24 22:08
ALT 25 U/L (0-35) 12/07/24 22:08
Alkaline Phosphatase 48 U/L (38-126) 12/07/24 22:08
Data Reviewed
-
CT Scan: Report Reviewed by me
Lab Data: Labs Reviewed by me
Old Records: Reviewed
Impression/Plan
-
IMPRESSION:
79-year-old with history of MS, chronic gait dysfunction, static hypotension, osteoporosis, hyperlipidemia, insulin-dependent diabetes and seizures presents to the emergency department with weakness and 2 falls. No loss of consciousness. No
seizure-like activity. Labs generally stable but notable for mild leukocytosis and some dehydration. She is found to have positive UA and urinalysis. CT of the head was negative. Suspect UTI with worsening of underlying ambulatory dysfunction
from weakness.
PLAN:
UTI - + U/A and weakness vs possible exacerbation of MS. No recent exacerbations requiring specific tx.
- admit to med/surg obs
- urine cultures
- IV ceftriaxone for now and reassess weakness
- seems UTI may be related to incontinence
MS/Weakness - suspect secondary to UTI. Known chronic right sided weakness. No seizures
- no indication for steroids at this time, monitor response to abx
- continue mayzent 2mg po daily
Type 2 diabetes
- lantus 25 units daily
- metformin 1000 bid
- sliding scale insulin
- gentle hydration
Orthostatic hypotension
- continue midodrine tid
DVT PPX - lovenox sq
Code status - DNR
[2024-12-08] MEDS: MAXIPIME 2000 MG IV (00:19)
[2024-12-08] MEDS: NSS 1000 IV (00:24)
[2024-12-08] MEDS: MELATONIN 5 MG PO (01:09)
[2024-12-08] MEDS: DESYREL 12.5 MG PO ×2 (01:09→21:22)
[2024-12-08] MEDS: FLUSH (NSS) 1 FLUSH IV (01:10)
[2024-12-08 01:50] VITALS: BP 141/62
[2024-12-08 02:37] VITALS: BMI 25.7
--- NOTE | 2024-12-08 02:38 | PTCARENOTE ---
Patient arrived to unit around 01:45 via stretcher with dx of weakness. AAOx3. Pleasant and cooperative with care. No c/o pain or discomfort. Oriented to unit. Call saxena within reach.
[2024-12-08 02:43] VITALS: BP 141/62
[2024-12-08 07:17] LABS: Hematocrit 37.9 % (37.0-47.0); Hemoglobin 12.8 g/dL (12.0-16.0); Mean Corp Hgb Conc. 33.8 g/dL (33.0-37.0); Mean Corpuscular Hgb 31.1 pg (27.0-31.0); Mean Corpuscular Volume 92.2 fL (81.0-99.0); Mean Platelet Volume 10.8 fL (7.4-10.4); Platelet Count 246 10^3/uL (130-400); Red Blood Cell Count 4.11 10^6/uL (4.20-5.40); White Blood Cell Count 7.7 10^3/uL (4.8-10.8)
[2024-12-08 07:42] LABS: Glucose - Point of Care 170 mg/dl (70-99)
[2024-12-08] MEDS: LANTUS 0.25 UNITS SC (07:42)
[2024-12-08] MEDS: KEPPRA 1000 MG PO ×2 (07:43→19:46)
[2024-12-08] MEDS: DITROPAN 5 MG PO (07:43)
[2024-12-08] MEDS: GLUCOPHAGE 1000 MG PO ×2 (07:43→16:57)
[2024-12-08] MEDS: LOW STRENGTH ASPIRIN 81 MG PO (07:43)
[2024-12-08] MEDS: LACTAID 1 CAPSULE PO ×3 (07:44→16:55)
[2024-12-08] MEDS: ProAmatine 2.5 MG PO ×3 (07:44→16:55)
[2024-12-08] MEDS: ROCEPHIN 1000 MG IV (07:45)
[2024-12-08] MEDS: STERILE WATER FOR INJECTION 10 ML IV (07:45)
[2024-12-08 07:49] VITALS: BP 155/77
[2024-12-08 07:53] LABS: Blood Urea Nitrogen 20 mg/dl (7-17); Calcium 9.1 mg/dl (8.4-10.2); Carbon Dioxide 29 mmol/L (22-30); Chloride 109 mmol/L (98-107); Estimated Creatinine Clearance 61 ml/min; Glucose 174 mg/dl (70-99); Potassium 4.4 mmol/L (3.5-5.1); Sodium 143 mmol/L (135-145); eGFR > 60.00
[2024-12-08 08:02] LABS: Glucose - Point of Care 174 mg/dl (70-99)
[2024-12-08] MEDS: NOVOLOG FLEXPEN-LOW RESISTANCE SC (09:30)
--- NOTE | 2024-12-08 11:08 | CM ---
Addendum entered by Vero Orozco 12/08/24 14:24:
Patient indicated that she did not talk to her yet and asked CM to call and leave a message. CM left VM for patient . CM will continue to follow for discharge planning needs,
Plan; home with VN vs home with no needs.
Original Note:
Patient seen at bedside on . Patient states that she lives with her in an apartment at [facility]. Patient assists with care and has a van that can accommodate her wheelchair for transportation. Patient has had caregivers and
VN from [facility] in the past. Patient PCP is Dr. Dobbins and she uses the [facility]. Patient was given OBS/BRENNER form to review and she agreed that she would review with her but she stated that they have for life and
did not anticipate any difficulties. Patient plan is to return to apartment pending medical treatment of care. CM will continue to follow for discharge planning needs.
Plan; home with VN to apartment at [facility].
[2024-12-08 12:06] LABS: Glucose - Point of Care 259 mg/dl (70-99)
[2024-12-08] MEDS: NOVOLOG FLEXPEN-LOW RESISTANCE 3 UNITS SC ×2 (12:15→16:55)
--- NOTE | 2024-12-08 13:56 | W.PN.HOSP.TC ---
Today's Communication/Plan
-
Antibiotics
Venous Doppler LE
PT eval
Assessment / Plan
Assessment / Plan
79-year-old female with ambulatory dysfunction and falls she was leaning to the right . Earlier in the day patient attempted to transfer from recliner to wheelchair and lost balance and fell. Again later when she was on the commode and helped off
she collapsed to the floor.
Cardiovascular system S1-S2 appreciated
Chest clear to auscultation
Abdomen soft and nontender
Bilateral pedal edema
right foot drop no left-sided weakness
Mild right-sided weakness-hemiparesis
Head CT-no acute changes
# UTI
Continue IV ceftriaxone
Follow urine cultures
# Weakness and fall
Chronic right-sided weakness from MS
Unclear if this is exacerbation versus other
Continue Mayzent 2 mg p.o. daily.
Patient states that her weakness on the right side is chronic and no different than it is normal
Likely exacerbated by infection. States back to normal
# DM
Continue Lantus 25 mg daily and metformin 1000 mg twice daily
Sliding-scale coverage with Accu-Cheks
# Seizures - Keppra
# Chronic orthostatic hypotension-continue midodrine
# Hyperlipidemia- Continue Statin
# Mood disorder-continue trazodone
# Ambulatory dysfunction-PT evaluation
# DVT prophylaxis-Lovenox
# DNR
Called and left message to call back
He will need to bring the brace for the patient to work with PT
Anticipated Discharge: 24 - 48 hours
Subjective/Interval History
-
Date of Service: December 08, 2024
Objective Data
-
Labs:
Laboratory Results
12/08/24
06:37
WBC 7.7
Hgb 12.8
Hct 37.9
Plt Count 246
Sodium 143
Potassium 4.4
Chloride 109 H
Carbon Dioxide 29
BUN 20 H
Creatinine 0.7
Glucose 174 H
Calcium 9.1
Vital Signs:
Vital Signs
Temp Pulse Resp BP Pulse Ox
97.8 F 76 18 155/77 93
12/08/24 07:49 12/08/24 07:49 12/08/24 07:49 12/08/24 07:49 12/08/24 07:49
I&O
12/07/24 12/08/24 12/09/24
06:59 06:59 06:59
Intake Total 480 / 480
Balance 480 / 480
[2024-12-08 15:32] VITALS: BP 124/61
[2024-12-08 16:24] LABS: Glucose - Point of Care 260 mg/dl (70-99)
[2024-12-08] MEDS: LOVENOX 40 MG SC (16:58)
[2024-12-08] MEDS: MELATONIN 10 MG PO (21:22)
[2024-12-08] MEDS: PRAVACHOL 20 MG PO (21:24)
[2024-12-08 21:30] LABS: Glucose - Point of Care 254 mg/dl (70-99)
[2024-12-08 23:00] VITALS: BP 140/63
[2024-12-09 07:29] LABS: Hemoglobin 13.6 g/dL (12.0-16.0); Mean Corpuscular Hgb 31.4 pg (27.0-31.0); Mean Corpuscular Volume 92.4 fL (81.0-99.0); Platelet Count 255 10^3/uL (130-400); Red Blood Cell Count 4.33 10^6/uL (4.20-5.40); White Blood Cell Count 6.7 10^3/uL (4.8-10.8)
[2024-12-09 08:01] LABS: Blood Urea Nitrogen 14 mg/dl (7-17); Calcium 9.4 mg/dl (8.4-10.2); Carbon Dioxide 28 mmol/L (22-30); Chloride 107 mmol/L (98-107); Estimated Creatinine Clearance 61 ml/min; Glucose 165 mg/dl (70-99); Potassium 4.5 mmol/L (3.5-5.1); Sodium 142 mmol/L (135-145); eGFR > 60.00
[2024-12-09 08:33] LABS: Glucose - Point of Care 186 mg/dl (70-99)
[2024-12-09] MEDS: LANTUS 0.25 UNITS SC (08:33)
[2024-12-09] MEDS: KEPPRA 1000 MG PO ×2 (08:35→21:01)
[2024-12-09] MEDS: NOVOLOG FLEXPEN-LOW RESISTANCE 1 UNITS SC (08:35)
[2024-12-09] MEDS: LACTAID 1 CAPSULE PO ×3 (08:36→16:50)
[2024-12-09] MEDS: LOW STRENGTH ASPIRIN 81 MG PO (08:36)
[2024-12-09] MEDS: GLUCOPHAGE 1000 MG PO ×2 (08:36→16:50)
[2024-12-09] MEDS: DITROPAN 5 MG PO (08:36)
[2024-12-09] MEDS: ProAmatine 2.5 MG PO ×3 (08:36→16:50)
[2024-12-09] MEDS: ROCEPHIN 1000 MG IV (08:37)
[2024-12-09] MEDS: STERILE WATER FOR INJECTION 10 ML IV (08:37)
[2024-12-09 08:43] VITALS: BP 144/72
[2024-12-09 11:04] VITALS: BP 141/65
--- NOTE | 2024-12-09 12:11 | W.PN.HOSP.TC ---
Today's Communication/Plan
-
see PN
Assessment / Plan
Assessment / Plan
79yo F multiple sclerosis with chronic R weakness, amatory dysfunction, orthostatic hypotension, osteoporosis, hyperlipidemia, diabetes mellitus, history of seizures. orthostatic hypotension, chronic ambulatory deficiency came with worsening
weakness and concern for UTI
following for MS an she was seen by him few weeks ago. No significant concerns for flare and no suggestions for therapy change as per . Still had progressive cognitive decline noted on that appoitment
A/P:
#UTI
UA poorly suggestive of UTI as WBC WNL
follow Ucx on Rocephin
#Acute on chronic ambulatory dysfunction with chronic R sided weakness 2/2 MS
PT/OT
Rehab but hesitating
Unclear if related to MS flare: get neurology opinion
#DM type 2 with unspecified complication
Insulin basal, SS, accuchecks, DM diet
#Orthostatic hypotension
#Insomnia
#Urinary incontinence
#Seizure d/o
#CAD stable
#Osteoporosis
cont home meds
Seizure precautions
DVT ppx lovenox
Full code
I have spent at least 58min reviewing chart, test results, communication with consultants and direct patient care
Anticipated Discharge: Within 24 hours
Subjective/Interval History
-
Date of Service: December 09, 2024
Objective Data
-
Labs:
Laboratory Results
12/09/24
06:27
WBC 6.7
Hgb 13.6
Hct 40.0
Plt Count 255
Sodium 142
Potassium 4.5
Chloride 107
Carbon Dioxide 28
BUN 14
Creatinine 0.7
Glucose 165 H
Calcium 9.4
Vital Signs:
Vital Signs
Temp Pulse Resp BP Pulse Ox
97.8 F 76 16 141/65 97
12/09/24 11:04 12/09/24 11:04 12/09/24 11:04 12/09/24 11:04 12/09/24 11:04
I&O
12/08/24 12/09/24 12/10/24
06:59 06:59 06:59
Intake Total 480 / 480 960 / 960
Balance 480 / 480 960 / 960
Review of Systems
-
History Source: Patient
All other systems: Reviewed and negative
Physical Exam
-
General: No Apparent Distress
HEENT: Normocephalic
Respiratory: Clear to Auscultation
GI: Soft, Nontender and Nondistended
Musculoskeletal: No Clubbing, No Cyanosis and No Edema
Neuro: Awake and Oriented
Psych: Calm and Apparent Dementia
[2024-12-09 12:46] LABS: Glucose - Point of Care 216 mg/dl (70-99)
[2024-12-09] MEDS: NOVOLOG FLEXPEN-LOW RESISTANCE 2 UNITS SC ×2 (12:48→16:49)
--- NOTE | 2024-12-09 13:02 | CON.NEURO4 ---
Addendum entered and electronically signed by Quentin Wong MD 12/09/24 14:04:
Studies reviewed.
I have personally examined the patient. I reviewed and agree with the PLATE DRILLER's Note.
My addenda:
Awake, alert, interactive. No acute distress.
Speech mildly hypophonic.
Follows 2-step requests w/o difficulty. No tremor.
Extra-ocular movements grossly intact.
Facial movements full and symmetric. Hearing intact to normal conversational volume.
Normal UE movements bilaterally.
Neck: full ROM.
Chest: no dyspnea
Heart: no JVD
Ext: (-) Clubbing, (-) Cyanosis, (-) Edema
IMPRESSIONS/RECOMMENDATIONS:
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
Supportive care
Continue the patient on siponimod
D/W patient / family
All questions answered.
Will continue to follow as needed
Original Note:
Consultation - Neurology 4
-
CONSULTING PHYSICIAN: Quentin Wong MD
REFERRING PHYSICIAN: Hospitalists/Dr. Cook
DICTATED BY: ANA MARIA Almaraz
DATE/TIME OF REQUEST: 12/09/24
DATE/TIME OF CONSULTATION: 12/09/24
Reason for Consultation: Weakness
History of Present Illness:
This is a 79-year-old right-handed female with a PMH of multiple sclerosis who has presented to the hospital with report of increased baseline weakness. Patient has been evaluated by our inpatient Neurology service for similar symptoms in the past
in the setting of an upper respiratory illness.
From my previous evaluation on 08/14/22:
'This is a 77-year-old right-handed female who has presented to the hospital with weakness and confusion starting a few days ago, and a one week history of having a nonproductive cough and congestion. She has multiple sclerosis and at baseline is
wheelchair bound; however, for the past few days she has been unable to get out of bed to her wheelchair due to weakness. She denies any headache, dizziness, ear pain, hearing changes, difficulty swallowing, chest pain, or shortness of breath. She
reports having double vision for over 10 years. This resolves with closing one eye and she wears an eye patch. She also reports right-sided weakness, right footdrop, and numbness in her right leg at baseline. She does not recall any episodes of
increased weakness like this in the past. She does think she had a stroke and a seizure a long time ago.
She is followed by neurology Dr. Garvey. She was diagnosed with MS sometime in her 20's or 30's. She reports having MRIs done a few months ago, after she started needing her wheelchair director multimedia, and there were no changes seen on her images. She has
been on several disease-modifying MS medications in the past, but cannot recall the names of them.'
Patient's reports that two days ago on 12/07/24 he noticed she was leaning to the right, which has happened in the past when she is ill/has increased weakness. She attempted to transfer from a recliner to her wheelchair and fell to the
ground. Later in the day she was incontinent of a large amount stool and when he had her stand up off of the commode to clean her she collapsed to the floor, prompting him to bring her to the ER for evaluation. CT head was obtained on arrival and is
negative for any acute abnormalities. Prelim urine culture is positive for E. Coli. Patient reports that she still feels mildly weaker than her baseline. She denies any headache, dizziness, speech/swallow difficulty, and numbness. She is wearing her
eye patch for comfort due to chronic diplopia.
Past Medical History: Multiple sclerosis diagnosed in 1981, cognitive impairment, HLD, DM2, osteoporosis, right foot drop, double vision, orthostatic hypotension
Surgical History: Bilateral cataract surgery
Family History: Reviewed and noncontributory
Social History: Denies tobacco, alcohol, and illicit drug use
Allergies: No known allergies.
Home Medications: See below.
Review of Symptoms:
Patient denies any fever, headache, chest pain, shortness of breath, GI or symptoms.
�Per the HPI.�All systems are reviewed negative except above.
Physical Exam:
The patient is afebrile, abdomen is nondistended, breathing is unlabored, skin is warm and dry, no edema.
Neurologic Examination:
The patient is awake, alert and oriented to person, place, and year (reported month as December). Next holiday- . She is able to follow commands and answer questions appropriately. There is no aphasia or dysarthria. Speech is mildly
hypophonic. On cranial nerve assessment, pupils are 3 mm bilateral, round and reactive to light and accommodation. Visual dunahm are full. 2+ esophoria right eye. CN6 palsy left eye. Facial sensations are intact and bilaterally symmetrical, there is
no facial asymmetry. Hearing is intact bilaterally to normal conversation volume. Tongue palate and uvula are midline. Sternocleidomastoid strengths are full bilaterally. Motor strengths are 4/5 right upper, 4+ left upper, 4+ LLE, proximal RLE 4-/4,
R foot ext/flex 1/5. There is no involuntary movement noted. Deep tendon reflexes are 1+ bilateral upper and lower extremities and Babinski is absent bilaterally. There was no extinction noted on double simultaneous stimulation. Coordination is
intact by finger to nose bilaterally.
Lab Results: See below.
Neuro Imaging:
1. CT Head 12/07/24: No acute intracranial abnormality noted.
Differentials for the patient's presentation include:
1. Likely a urinary tract infection given prelim culture +E. coli, combined with possible orthostasis, exacerbating baseline weakness in a patient with a chronic neurodegenerative disease, multiple sclerosis.
2. No concern for new multiple sclerosis flare or new structural brain abnormality.
Patient has the following risk factors for their symptoms: MS, UTI, orthostasis
Recommendations:
-Would check orthostatic vital signs.
-Encourage hydration.
-Infectious workup per primary team.
-Continue levetiracetam 1000mg BID.
-Continue aspirin 81mg daily.
-No indication for MRI imaging or steroids at this time.
-Patient should follow-up with Neurology Dr. Garvey as an outpatient.
Discussed patient care with: Dr. Wong, the patient
Vital Signs and Labs
-
Vital Signs and Labs:
Vital Signs
Temp Pulse Resp BP Pulse Ox
97.8 F 76 16 141/65 97
12/09/24 11:04 12/09/24 11:04 12/09/24 11:04 12/09/24 11:04 12/09/24 11:04
Lab Results
12/09/24 06:27
12/09/24 06:27
Sodium 142 mmol/L (135-145) 12/09/24 06:27
Potassium 4.5 mmol/L (3.5-5.1) 12/09/24 06:27
BUN 14 mg/dl (7-17) 12/09/24 06:27
Glucose 165 mg/dl (70-99) H 12/09/24 06:27
Calcium 9.4 mg/dl (8.4-10.2) 12/09/24 06:27
Medications
-
Active Medications
Generic Name Dose Route Start Last Admin
Trade Name Freq PRN Reason Stop Dose Admin
Acetaminophen 650 mg 12/08/24 02:35
Acetaminophen 325 Mg Tablet PO 01/05/25 02:34
Q4HPRN PRN
mild pain/JUÁREZ/temp> 100.4F
Aspirin 81 mg 12/08/24 08:00 12/09/24 08:36
Aspirin 81 Mg Chewable Tablet PO 01/05/25 07:59 81 mg
DAILY MELODY Administration
Bisacodyl 10 mg 12/08/24 02:35
Bisacodyl 10 Mg Rectal Suppository RECTAL 01/05/25 02:34
[id number] PRN
constipation
Ceftriaxone Sodium 1,000 mg 12/08/24 08:00 06/12/25 08:37
Ceftriaxone 1000 Mg / 10 Ml Vial IV 1,000 mg
Q24H MELODY Administration
Dextrose 12.5 grams 12/08/24 03:00
Dextrose 50% (0.5 Grams/Ml) 50 Ml Syringe IV 01/05/25 02:59
[id number] PRN
hypoglycemia
Protocol
Enoxaparin Sodium 40 mg 12/08/24 18:00 12/08/24 16:58
Enoxaparin Sodium 40 Mg/0.4 Ml Syringe SC 01/05/25 17:59 40 mg
QPM MELODY Administration
Glucagon 1 mg 12/08/24 03:00
Glucagon 1 Mg Vial IM 01/05/25 02:59
PRN PRN
hypoglycemia - no IV access
Protocol
Insulin Glargine 25 units/ 0.25 mls @ 0 mls/hr 12/08/24 08:00 12/09/24 08:33
Device SC 01/05/25 07:59 0.25 mls
DAILY MELODY Administration
As Directed
Insulin Aspart 0 units 12/08/24 07:30 12/09/24 12:48
Insulin Aspart Low Resistance 300 Units/3 Ml Pen.Injctr SC 01/05/25 07:29 2 units
AC MELODY Administration
Protocol
Lactase 1 capsule 12/08/24 08:00 12/09/24 12:48
Lactase Enzyme Capsule PO 01/05/25 07:59 1 capsule
TID @ 0800,1200,1700 MELODY Administration
Levetiracetam 1,000 mg 12/08/24 08:00 12/09/24 08:35
Levetiracetam 500 Mg Regular Release Tablet PO 01/05/25 07:59 1,000 mg
BID MELODY Administration
Melatonin 10 mg 12/08/24 02:35 12/08/24 21:22
Melatonin 5 Mg Tablet PO 10 mg
HS PRN Administration
sleep
Metformin HCl 1,000 mg 12/08/24 08:00 12/09/24 08:36
Metformin 1000 Mg Regular Release Tablet PO 01/05/25 07:59 1,000 mg
BID AT 0800,1700 MELODY Administration
Midodrine 2.5 mg 12/08/24 08:00 12/09/24 12:48
Midodrine 2.5 Mg Tablet PO 2.5 mg
TID @ 0800,1200,1700 MELODY Administration
Siponimod [Mayzent] 0 mg 12/08/24 08:00
2 Mg Tablet Po Daily PO 01/05/25 07:59
DAILY MELODY
Oxybutynin Chloride 5 mg 12/08/24 08:00 12/09/24 08:36
Oxybutynin 5 Mg Tablet PO 01/05/25 07:59 5 mg
DAILY MELODY Administration
Polyethylene Glycol 17 grams 12/08/24 02:35
Polyethylene Glycol Powder 17 Grams Packet PO 01/05/25 02:34
DAILYPRN PRN
constipation
Pravastatin Sodium 20 mg 12/08/24 22:00 12/08/24 21:24
Pravastatin 20 Mg Tablet PO 01/05/25 21:59 20 mg
HS MELODY Administration
Senna/Docusate Sodium 1 tablet 12/08/24 02:35
Docusate W/Senna (Gemma-Colace) Tablet PO 01/05/25 02:34
BIDPRN PRN
constipation
Sodium Chloride 0 flush 12/08/24 01:00 12/08/24 01:10
Sodium Chloride 0.9% (Flush) Syringe IV 01/05/25 00:59 1 flush
PER PROTOCOL MELODY Administration
Sterile Water 10 ml 12/08/24 08:00 12/09/24 08:37
Sterile Water For Injection 10 Ml Vial IV 01/05/25 07:59 10 ml
Q24H MELODY Administration
Trazodone HCl 12.5 mg 12/08/24 22:00 12/08/24 21:22
Trazodone 50 Mg Tablet PO 01/05/25 21:59 12.5 mg
HS MELODY Administration
Home Medications
�Medication �Instructions �Recorded
aspirin 81 mg chewable tablet 81 mg PO DAILY Blood Clot 03/04/21
Prevention/Tx
cholecalciferol (vitamin D3) 50 2,000 units PO DAILY Supplement 03/04/21
mcg (2,000 unit) tablet
oxybutynin chloride 5 mg tablet 5 mg PO DAILY Urinary Issue 03/04/21
pravastatin 40 mg tablet 20 mg PO HS High Cholesterol 03/04/21
alendronate 70 mg tablet 70 mg PO MO BONE 08/13/22
calcium 600 mg (as carbonate)-vit 1 tab PO DAILY Supplement 08/13/22
D3 20 mcg (800 unit) chewable
tablet (Caltrate plus D)
levetiracetam 1,000 mg tablet 1,000 mg PO BID Seizures 08/13/22
melatonin 10 mg tablet 10 mg PO HS PRN sleep 08/13/22
metformin 1,000 mg tablet 1,000 mg PO BID Diabetes 08/13/22
midodrine 2.5 mg tablet 2.5 mg PO TID Blood Pressure 08/13/22
trazodone 50 mg tablet 12.5 mg PO HS Mental Health/Anxiety 08/13/22
senna 8.6 mg HS Constipation 08/21/24
siponimod 2 mg tablet (Mayzent) 2 mg PO DAILY 08/22/24
insulin glargine 100 unit/mL (3 25 unit SC DAILY Diabetes 12/08/24
mL) subcutaneous pen (Lantus
Solostar U-100 Insulin)
lactase 3,000 unit chewable tablet 3,000 unit PO TID @ 0800,1200,1700 12/08/24
multivitamin with minerals-folic 1 tab PO DAILY 12/08/24
acid 80 mcg chewable tablet
(Centrum Adult 50 Plus)
[2024-12-09 15:39] VITALS: BP 129/61
[2024-12-09 16:41] LABS: Glucose - Point of Care 245 mg/dl (70-99)
[2024-12-09] MEDS: LOVENOX 40 MG SC (16:51)
[2024-12-09] MEDS: PRAVACHOL 20 MG PO (21:02)
[2024-12-09] MEDS: DESYREL 12.5 MG PO (21:02)
[2024-12-09 21:24] LABS: Glucose - Point of Care 132 mg/dl (70-99)
[2024-12-09 23:21] VITALS: BP 118/87
[2024-12-10 07:00] VITALS: BP 153/83
[2024-12-10 07:13] LABS: Glucose - Point of Care 158 mg/dl (70-99)
[2024-12-10 07:30] LABS: % Basophils 0.9 % (0-2); % Eosinophils 4.1 % (0-6); % Immature Granulocytes 0.3 % (0-0.5); % Monocytes 7.9 % (1.7-9.3); % Neutrophils 81.8 % (42.2-75.2); Absolute Basophils 0.1 10^3/uL (0-0.2); Absolute Eosinophils 0.3 10^3/uL (0-0.7); Absolute Lymphocytes 0.4 10^3/uL (1.2-3.4); Absolute Monocytes 0.6 10^3/uL (0.1-0.6); Absolute Neutrophils 6.2 10^3/uL (1.4-6.5); Hematocrit 40.7 % (37.0-47.0); Hemoglobin 14.2 g/dL (12.0-16.0); Mean Corp Hgb Conc. 34.9 g/dL (33.0-37.0); Mean Corpuscular Hgb 31.6 pg (27.0-31.0); Mean Corpuscular Volume 90.4 fL (81.0-99.0); Mean Platelet Volume 11.1 fL (7.4-10.4); Nucleated Red Blood Cells % 0 %; Platelet Count 266 10^3/uL (130-400); Red Cell Dist. Width 11.9 % (11.5-14.5); White Blood Cell Count 7.6 10^3/uL (4.8-10.8)
[2024-12-10] MEDS: ProAmatine PO (08:36)
[2024-12-10] MEDS: NOVOLOG FLEXPEN-LOW RESISTANCE 1 UNITS SC (08:36)
[2024-12-10 08:40] LABS: ALT (SGPT) 27 U/L (0-35); AST (SGOT) 22 U/L (14-36); Alkaline Phosphatase 53 U/L (38-126); Blood Urea Nitrogen 17 mg/dl (7-17); Calcium 9.9 mg/dl (8.4-10.2); Carbon Dioxide 28 mmol/L (22-30); Chloride 106 mmol/L (98-107); Estimated Creatinine Clearance 61 ml/min; Glucose 158 mg/dl (70-99); Potassium 4.3 mmol/L (3.5-5.1); Sodium 141 mmol/L (135-145); Total Bilirubin 0.4 mg/dl (0.2-1.3); Total Protein 6.7 g/dl (6.3-8.2); eGFR > 60.00
[2024-12-10] MEDS: GLUCOPHAGE 1000 MG PO ×2 (08:46→17:27)
[2024-12-10] MEDS: DITROPAN 5 MG PO (08:46)
[2024-12-10] MEDS: KEPPRA 1000 MG PO ×2 (08:46→20:37)
[2024-12-10] MEDS: LOW STRENGTH ASPIRIN 81 MG PO (08:47)
[2024-12-10] MEDS: LACTAID 1 CAPSULE PO ×3 (08:47→17:27)
[2024-12-10] MEDS: LANTUS 0.25 UNITS SC (08:52)
--- NOTE | 2024-12-10 09:13 | W.PN.HOSP.TC ---
Today's Communication/Plan
-
Neurology noted
COnt Rocephin pendign Ucx sensitivity, then dc - as previously discussed with patient and - home
Assessment / Plan
Assessment / Plan
79yo F multiple sclerosis with chronic R weakness, amatory dysfunction, orthostatic hypotension, osteoporosis, hyperlipidemia, diabetes mellitus, history of seizures. orthostatic hypotension, chronic ambulatory deficiency came with worsening
weakness and concern for UTI.
following for MS an she was seen by him few weeks ago. No significant concerns for flare and no suggestions for therapy change as per . Still had progressive cognitive decline noted on that appoitment
A/P:
#UTI
UA poorly suggestive of UTI as WBC WNL
follow Ucx on Rocephin - E.coli pending sensitivity
#Acute on chronic ambulatory dysfunction with chronic R sided weakness 2/2 MS
PT/OT
Rehab but hesitating
Unclear if related to MS flare: get neurology opinion - no need in imaging, cont outpatient follow up
#DM type 2 with unspecified complication
Insulin basal, SS, accuchecks, DM diet
#Orthostatic hypotension
#Insomnia
#Urinary incontinence
#Seizure d/o
#CAD stable
#Osteoporosis
cont home meds
Seizure precautions
DVT ppx lovenox
Full code
I have spent at least 58min reviewing chart, test results, communication with consultants and direct patient care
Anticipated Discharge: Within 24 hours
Subjective/Interval History
-
Date of Service: December 10, 2024
Objective Data
-
Labs:
Laboratory Results
12/10/24
06:49
WBC 7.6
Hgb 14.2
Hct 40.7
Plt Count 266
Sodium 141
Potassium 4.3
Chloride 106
Carbon Dioxide 28
BUN 17
Creatinine 0.7
Glucose 158 H
Calcium 9.9
Total Bilirubin 0.4
AST 22
ALT 27
Alkaline Phosphatase 53
Vital Signs:
Vital Signs
Temp Pulse Resp BP Pulse Ox
97.6 F 81 18 153/83 95
12/10/24 07:00 12/10/24 07:00 12/10/24 07:00 12/10/24 08:36 12/10/24 07:00
I&O
12/09/24 12/10/24 12/11/24
06:59 06:59 06:59
Intake Total 960 / 960
Output Total 1000 / 1000
Balance 960 / 960 -1000 / -1000
Review of Systems
-
History Source: Patient
All other systems: Reviewed and negative
Physical Exam
-
General: No Apparent Distress
HEENT: Normocephalic
Cardiac: Regular Rhythm
GI: Soft
Neuro: Awake, Alert, Oriented and AO x 3
Psych: Calm
[2024-12-10] MEDS: FLUSH (NSS) 2 FLUSH IV (10:41)
[2024-12-10] MEDS: STERILE WATER FOR INJECTION 10 ML IV (10:41)
[2024-12-10] MEDS: ROCEPHIN 1000 MG IV (10:41)
[2024-12-10 11:32] LABS: Glucose - Point of Care 279 mg/dl (70-99)
[2024-12-10] MEDS: NOVOLOG FLEXPEN-LOW RESISTANCE 3 UNITS SC (13:14)
[2024-12-10] MEDS: ProAmatine 2.5 MG PO ×2 (13:15→17:29)
[2024-12-10 13:31] VITALS: BP 114/74
[2024-12-10 15:07] VITALS: BP 130/71
--- NOTE | 2024-12-10 16:18 | CM ---
Chart reviewed. Patient recommended for SNF, referral sent to [facility]
Cont IV abx
Plan: SNF
[2024-12-10 16:33] LABS: Glucose - Point of Care 139 mg/dl (70-99)
[2024-12-10] MEDS: NOVOLOG FLEXPEN-LOW RESISTANCE SC (17:28)
[2024-12-10] MEDS: LOVENOX 40 MG SC (17:30)
[2024-12-10] MEDS: PRAVACHOL 20 MG PO (20:38)
[2024-12-10] MEDS: DESYREL 12.5 MG PO (20:38)
[2024-12-10 21:06] LABS: Glucose - Point of Care 221 mg/dl (70-99)
[2024-12-10 23:35] VITALS: BP 121/62
[2024-12-11 07:00] VITALS: BP 162/84
[2024-12-11 07:26] LABS: Glucose - Point of Care 122 mg/dl (70-99)
[2024-12-11] MEDS: DITROPAN 5 MG PO (07:57)
[2024-12-11] MEDS: LACTAID 1 CAPSULE PO ×3 (07:57→17:25)
[2024-12-11] MEDS: NOVOLOG FLEXPEN-LOW RESISTANCE SC (07:57)
[2024-12-11] MEDS: LOW STRENGTH ASPIRIN 81 MG PO (07:58)
[2024-12-11] MEDS: ProAmatine 2.5 MG PO ×3 (07:58→17:25)
[2024-12-11] MEDS: GLUCOPHAGE 1000 MG PO ×2 (07:58→17:25)
[2024-12-11] MEDS: KEPPRA 1000 MG PO ×2 (07:58→20:02)
[2024-12-11] MEDS: ROCEPHIN 1000 MG IV (07:59)
[2024-12-11] MEDS: LANTUS 0.25 UNITS SC (07:59)
[2024-12-11] MEDS: STERILE WATER FOR INJECTION 10 ML IV ×3 (08:00→17:25)
--- NOTE | 2024-12-11 09:59 | W.PN.HOSP.TC ---
Today's Communication/Plan
-
pending Ucx and then d/c
Assessment / Plan
Assessment / Plan
79yo F multiple sclerosis with chronic R weakness, amatory dysfunction, orthostatic hypotension, osteoporosis, hyperlipidemia, diabetes mellitus, history of seizures. orthostatic hypotension, chronic ambulatory deficiency came with worsening
weakness and concern for UTI.
following for MS an she was seen by him few weeks ago. No significant concerns for flare and no suggestions for therapy change as per . Still had progressive cognitive decline noted on that appoitment
A/P:
#UTI
UA poorly suggestive of UTI as WBC WNL
follow Ucx on Rocephin - E.coli pending sensitivity
#Acute on chronic ambulatory dysfunction with chronic R sided weakness 2/2 MS
PT/OT
Rehab but hesitating
Unclear if related to MS flare: get neurology opinion - no need in imaging, cont outpatient follow up
#DM type 2 with unspecified complication
Insulin basal, SS, accuchecks, DM diet
#Orthostatic hypotension
#Insomnia
#Urinary incontinence
#Seizure d/o
#CAD stable
#Osteoporosis
cont home meds
Seizure precautions
DVT ppx lovenox
Full code
I have spent at least 58min reviewing chart, test results, communication with consultants and direct patient care
Anticipated Discharge: Within 24 hours
Subjective/Interval History
-
Date of Service: December 11, 2024
Objective Data
-
Vital Signs:
Vital Signs
Temp Pulse Resp BP Pulse Ox
97.2 F 78 16 162/84 98
12/11/24 07:00 12/11/24 07:58 12/11/24 07:00 12/11/24 07:58 12/11/24 08:00
I&O
06/13/25 06/14/25 06/15/25
06:59 06:59 06:59
Intake Total 480 / 480
Output Total 1000 / 1000
Balance -1000 / -1000 480 / 480
Review of Systems
-
History Source: Patient
All other systems: Reviewed and negative
Physical Exam
-
General: No Apparent Distress
GI: Soft, Nontender and Nondistended
Neuro: Other (chronci RUE and RLE weakness on baseline)
Psych: Calm
[2024-12-11 11:21] LABS: Glucose - Point of Care 197 mg/dl (70-99)
--- NOTE | 2024-12-11 11:53 | W.PN.UPDATE ---
Update Note
Progress Note Update
As per Microbiology lab: Ucx being repeated due to concern for ESBL E.coli. informed . Will switch to Merrem pending final Cx and sensitivity
[2024-12-11] MEDS: NOVOLOG FLEXPEN-LOW RESISTANCE 1 UNITS SC (12:04)
[2024-12-11] MEDS: MERREM 500 MG IV ×2 (12:35→17:25)
[2024-12-11 15:06] VITALS: BP 140/66
--- NOTE | 2024-12-11 15:21 | CM ---
Met with patient and spouse. BOth hope patient can return to apartment with [facility]. Referral put in [facility]. CM to watch for new PT OT notes on Friday to see if and patient can manage min assist transfers at home.
[2024-12-11 16:26] LABS: Glucose - Point of Care 252 mg/dl (70-99)
[2024-12-11] MEDS: LOVENOX 40 MG SC (17:26)
[2024-12-11] MEDS: NOVOLOG FLEXPEN-LOW RESISTANCE 3 UNITS SC (17:29)
[2024-12-11] MEDS: PRAVACHOL 20 MG PO (21:17)
[2024-12-11] MEDS: DESYREL 12.5 MG PO (21:17)
[2024-12-11 21:19] LABS: Glucose - Point of Care 182 mg/dl (70-99)
[2024-12-11 23:00] VITALS: BP 139/76
[2024-12-12] MEDS: MERREM 500 MG IV ×3 (00:21→13:20)
[2024-12-12] MEDS: STERILE WATER FOR INJECTION 10 ML IV ×3 (00:21→13:21)
[2024-12-12 07:54] LABS: Glucose - Point of Care 101 mg/dl (70-99)
[2024-12-12 08:00] VITALS: BP 141/71
[2024-12-12] MEDS: DITROPAN 5 MG PO (08:29)
[2024-12-12] MEDS: ProAmatine 2.5 MG PO ×2 (08:29→13:21)
[2024-12-12] MEDS: NOVOLOG FLEXPEN-LOW RESISTANCE SC ×2 (08:30→12:34)
[2024-12-12] MEDS: LOW STRENGTH ASPIRIN 81 MG PO (08:30)
[2024-12-12] MEDS: GLUCOPHAGE 1000 MG PO (08:30)
[2024-12-12] MEDS: LACTAID 1 CAPSULE PO ×2 (08:30→13:20)
[2024-12-12] MEDS: KEPPRA 1000 MG PO (08:30)
[2024-12-12] MEDS: LANTUS 0.25 UNITS SC (09:43)
--- NOTE | 2024-12-12 10:54 | W.PN.HOSP.TC ---
Today's Communication/Plan
-
cont merrem
ID consult
Assessment / Plan
Assessment / Plan
79yo F multiple sclerosis with chronic R weakness, amatory dysfunction, orthostatic hypotension, osteoporosis, hyperlipidemia, diabetes mellitus, history of seizures. orthostatic hypotension, chronic ambulatory deficiency came with worsening
weakness and concern for UTI.
following for MS an she was seen by him few weeks ago. No significant concerns for flare and no suggestions for therapy change as per . Still had progressive cognitive decline noted on that appoitment
A/P:
#UTI
UA poorly suggestive of UTI as WBC WNL
ESBL E.coli on Cx
ID consult for duration and selection while on merrem since 12/11/24 since minimal symptoms on admission but patient with MS
#Acute on chronic ambulatory dysfunction with chronic R sided weakness 2/2 MS
PT/OT
Rehab but hesitating
Unclear if related to MS flare: get neurology opinion - no need in imaging, cont outpatient follow up
#DM type 2 with unspecified complication
Insulin basal, SS, accuchecks, DM diet
#Orthostatic hypotension
#Insomnia
#Urinary incontinence
#Seizure d/o
#CAD stable
#Osteoporosis
cont home meds
Seizure precautions
DVT ppx lovenox
Full code
I have spent at least 56min reviewing chart, test results, communication with consultants and direct patient care
Anticipated Discharge: 24 - 48 hours
Subjective/Interval History
-
Date of Service: December 12, 2024
Objective Data
-
Vital Signs:
Vital Signs
Temp Pulse Resp BP Pulse Ox
97.2 F 77 16 141/71 98
12/12/24 08:00 12/12/24 08:00 12/12/24 08:00 12/12/24 08:29 12/12/24 08:00
I&O
12/11/24 12/12/24 12/13/24
06:59 06:59 06:59
Intake Total 480 / 480 720 / 720
Balance 480 / 480 720 / 720
Review of Systems
-
History Source: Patient
All other systems: Reviewed and negative
Physical Exam
-
General: No Apparent Distress
HEENT: Normocephalic
Respiratory: Clear to Auscultation
GI: Soft, Nontender and Nondistended
Musculoskeletal: No Clubbing, No Cyanosis and No Edema
Neuro: Awake, Alert, Oriented and AO x 3
Psych: Calm
--- NOTE | 2024-12-12 11:35 | CM ---
Addendum entered by Rut Eugene 12/12/24 15:49:
[facility] letter given on 12/08/24
Addendum entered by Rut Eugene 12/12/24 15:44:
Home with [facility].
Original Note:
Chart reviewed and patient has transferred to isolation room, manager of purchasing will await updated PT/OT evaluations, patient and spouse would like to see if patient is close to baseline, and return to home with supports and [facility].
Plan; Await Updated PT/OT on patient.
[2024-12-12 12:13] VITALS: BMI 25.7
[2024-12-12 12:30] LABS: Glucose - Point of Care 137 mg/dl (70-99)
[2024-12-12 14:41] VITALS: BP 162/74
--- NOTE | 2024-12-12 14:44 | CON.ID ---
Consultation
-
Date/Time Consultation Requested: 12/12/2024 1045
Date/Time Consultation Performed: 12/12/2024 1444
Requesting Provider: Dr. Cook
Performing Provider: Dr. Orozco
Reason for Consultation: ESBL UTI
Chief Complaint / Past History
History of Present Illness
Jumana Mahan is a 79-year-old female with a significant past medical history of multiple sclerosis and mild dementia being evaluated the request of Dr. Cook regarding complicated urinary tract infection. History is obtained from chart review,
along with patient interview.
The patient presents to [facility]24 with complaints of weakness and fatigue. Symptoms reportedly started 24 hours before, and she reportedly fell twice at home due to weakness. No reported loss of consciousness and no reported
striking of the head.
In the ER, she she was found to have a low-grade leukocytosis which normalized the next day, and urinalysis was noted to be positive for nitrates, but without white cells, but significant epithelial cells. There was concern for possible infection,
she was placed on a empiric cefepime and then quickly shifted to ceftriaxone through 12/11. On 12/11 her cultures came back positive as ESBL E. coli and she was switched to meropenem. Infectious Diseases asked to comment upon further antimicrobial
therapy.
Patient denies any dysuria. She denies any fevers or chills. She denies any abdominal pain or back pain.
Past History
Additional Past Medical History:
HLD
NIDDM
Multiple sclerosis
Mild dementia
Osteoporosis
Past Surgical History: None
Allergy History:
No Known Allergies Allergy (Verified 12/07/24 21:17)
Medications Reviewed: Yes
Current Antibiotics:
Meropenem 500 mg IV every 6 hours (d#2)
Social History
Tobacco: Non-Smoker
Alcohol: None
Drug: None
Personal:
Living: With Family
Employment: Disabled
Family History
Family History: Not Pertinent
Review of Systems
Vital Signs
Temp Pulse Resp BP Pulse Ox
97.2 F 79 16 141/71 98
12/12/24 08:00 12/12/24 08:00 12/12/24 08:00 12/12/24 08:29 12/12/24 08:00
Physical Exam
Physical Exam
Constitutional: No Acute Distress, Comfortable, Chronically Ill and Non-toxic
Eyes: Sclera Anicteric
Oral: No Thrush and No Ulcers
Cardiovascular: S1/S2; Negative S3/S4
Pulmonary: Clear and Non Labored
Gastrointestinal: Soft, Non Tender, Non Distended and Normal Bowel Sounds
Genito-Urinary: Negative Suprapubic Tenderness or CVA Tenderness
Extremities: Negative Edema, Cyanosis or Erythema
Neurological: Awake and Alert
Psychological: Calm
Lab / Diagnostic Study Results
12/10/24 06:49
12/10/24 06:49
Abs Immat Gran (auto) 0.0 10^3/uL (0-0.05) 12/10/24 06:49
Absolute Neuts (auto) 6.2 10^3/uL (1.4-6.5) 12/10/24 06:49
Absolute Lymphs (auto) 0.4 10^3/uL (1.2-3.4) L 12/10/24 06:49
Absolute Monos (auto) 0.6 10^3/uL (0.1-0.6) 12/10/24 06:49
Absolute Basos (auto) 0.1 10^3/uL (0-0.2) 12/10/24 06:49
Immature Gran % 0.3 % (0-0.5) 12/10/24 06:49
Neutrophils % 81.8 % (42.2-75.2) H 12/10/24 06:49
Lymphocytes % 5.0 % (20.5-51.1) L 12/10/24 06:49
Monocytes % 7.9 % (1.7-9.3) 12/10/24 06:49
Eosinophils % 4.1 % (0-6) 12/10/24 06:49
Basophils % 0.9 % (0-2) 12/10/24 06:49
Ur Squamous Epith Cells >30 /LPF (Few) 12/07/24 22:50
Microbiology Results
Micro:
12/07/24 22:50 Urine Culture - Final
Urine Escherichia coli - ESBL
Imaging:
12/07/2024 CT head without contrast: No acute intracranial abnormality noted. Ventricles are normal in size, configuration and position for age. No intra or extra-axial mass, hemorrhage or fluid collections noted. Please see full dictation for
additional detail.
Assessment / Plan
Fall
Asymptomatic bacteriuria
- Urinalysis without pyuria. Also evidence of contamination with significant squamous epithelial cells.
Leukocytosis admission; quickly resolved
HLD
NIDDM
Multiple sclerosis
Mild dementia
Osteoporosis
Recommendations:
Patient without urinary symptomatology.
Admission leukocytosis likely from fall as it quickly resolved.
Would discontinue further antibiotics.
--- NOTE | 2024-12-12 15:35 | W.DCSUMMARY ---
Discharge Summary
Discharge Data
Date of Admission: 12/08/24
Date of Discharge: 12/12/24
-
Pending Results: No
Hospital Course
79yo F multiple sclerosis with chronic R weakness, amatory dysfunction, orthostatic hypotension, osteoporosis, hyperlipidemia, diabetes mellitus, history of seizures. orthostatic hypotension, chronic ambulatory deficiency came with worsening
weakness and concern for UTI.
following for MS an she was seen by him few weeks ago. No significant concerns for flare and no suggestions for therapy change as per . Still had progressive cognitive decline noted on that appoitment. Reviewed with neurologist and
no concern for MS flare. With no symptoms and minimal leukocytosis that has improved while on Abx that supposedly would not cover ESBL E.coli - doubt UTI, rather favour colonization. Same agreed with ID. Abx stopped and medcially stable for d/c home
I have spent at least 36min reviewing chart, test results, communication with consultants and direct patient care
Patient was manage dfor:
#UTI ruled out
#Acute on chronic ambulatory dysfunction with chronic R sided weakness 2/2 MS
#DM type 2 with unspecified complication
#Orthostatic hypotension
#Insomnia
#Urinary incontinence
#Seizure d/o
#CAD stable
#Osteoporosis
Discharge Plan
-
Patient Disposition: Home with Home Care
Discharge Diagnosis/Procedures: UTI
Diet: Diabetic, Carb Controlled
Activity: With assistance
Driving Restrictions: As prior to admission
Referrals:
Dina Dobbins MD [Family Provider, Internal Medicine]
Prescriptions:
New
lactase [Dairy Relief] 3,000 unit Tablet
3,000 unit PO TID @ 0800,1200,1700 Qty: 0 0RF
Continued
pravastatin 40 MG tablet
20 mg PO HS
aspirin 81 MG tablet,chewable
81 mg PO DAILY
oxybutynin chloride 5 MG tablet
5 mg PO DAILY
cholecalciferol (vitamin D3) 2,000 UNITS tablet
2,000 units PO DAILY
trazodone 50 mg tablet
12.5 mg PO HS
alendronate 70 mg tablet
70 mg PO MO
metformin 1,000 mg tablet
1,000 mg PO BID
Rx Instructions:
with meals
midodrine 2.5 mg tablet
2.5 mg PO TID
levetiracetam 1,000 mg tablet
1,000 mg PO BID
melatonin 10 mg Tablet
10 mg PO HS PRN (Reason: sleep)
Caltrate 600 plus D 600 mg-20 mcg (800 unit) Tablet,Chewable
1 tab PO DAILY
senna
8.6 mg HS
Mayzent 2 mg Tablet
2 mg PO DAILY
insulin glargine [Lantus Solostar U-100 Insulin] 100 unit/mL (3 mL) Insulin Pen
25 unit SC DAILY
Centrum Adult 50 Plus 80 mcg Tablet,Chewable
1 tab PO DAILY
lactase 3,000 unit Tablet,Chewable
3,000 unit PO TID @ 0800,1200,1700
Discharge Orders:
Discharge Patient (As Directed); Ordered 12/12/24
Ordered By: Ildefonso Cook
Discharge Date and Time
Print Language: BULGARIAN
== END 2024-12-12 16:25 | disposition home health service (06) ==
LOC: 4 WEST ACU 00:57
PROVIDERS: Hospitalist; Nurse Practitioner; ADMITTING PHYSICIAN Internal Medicine; ATTENDING PHYSICIAN Internal Medicine; CONSULT PHYSICIAN Internal Medicine Infectious Disease; CONSULT PHYSICIAN Psychiatry & Neurology Neurology; EMERGENCY PHYSICIAN Emergency Medicine; FAMILY PHYSICIAN Internal Medicine Geriatric Medicine
DX: R53.1 Weakness (principal); G35 Multiple sclerosis; R53.83 Other fatigue; R29.6 Repeated falls; E86.0 Dehydration; D72.829 Elevated white blood cell count, unspecified; I95.1 Orthostatic hypotension; M21.371 Foot drop, right foot; R20.0 Anesthesia of skin; R41.89 Other symptoms and signs involving cognitive functions and awareness; W19.XXXA Unspecified fall, initial encounter; Y93.9 Activity, unspecified; Y92.9 Unspecified place or not applicable; E78.00 Pure hypercholesterolemia, unspecified; F03.A18 Unspecified dementia, mild, with other behavioral disturbance; M81.0 Age-related osteoporosis without current pathological fracture; E11.9 Type 2 diabetes mellitus without complications; F03.A3 Unspecified dementia, mild, with mood disturbance; G40.909 Epilepsy, unspecified, not intractable, without status epilepticus; R60.0 Localized edema; R32 Unspecified urinary incontinence; I25.10 Atherosclerotic heart disease of native coronary artery without angina pectoris; G47.00 Insomnia, unspecified; Z66 Do not resuscitate; Z99.3 Dependence on wheelchair; Z79.82 Long term (current) use of aspirin; Z79.84 Long term (current) use of oral hypoglycemic drugs; Z79.891 Long term (current) use of opiate analgesic; Z79.4 Long term (current) use of insulin
CPT/HCPCS: 70450; 80048; 80053; 81003; 81015; 82962; 85025; 85027; 87077; 87086; 87186; 93005; 93970; 96361; 96374; 97110; 97163; 97167; 97530; 97535; 99285; G0378